=== PATIENT | female | born 1975 | race Caucasian/White ===

== ENCOUNTER → 2019-03-13 14:39 | Outpatient (CLI) | payer OTHER, SELFPAY ==
[2019-03-13 09:56] VITALS: BMI 40.7
[2019-03-13 14:57] LABS: Mucous, Urine 0 SEEN /hpf (<or=2+); Red Blood Cells-Urine 0 SEEN /hpf (0-5)
[2019-03-13 15:20] LABS: Color, Urine Yellow (Yellow); Glucose, Dipstick Normal (Normal); Ketone-Dipstick Negative (Negative); Leukocyte Esterase-Dipstick 500 /ul (Negative); Nitrite-Dipstick Negative (Negative); Occult Blood-Urine Negative /ul (Negative); Protein-Dipstick Negative (Negative); Urine Bilirubin Dipstick Negative (Negative); Urine Clarity Clear (Clear); Urine Urobilinogen Normal (Normal)
[2019-03-13 15:58] LABS: Bacteria RARE /hpf (None Seen); Squamous Epithelial Cells - UA 0-5 SEEN /hpf (5-10); White Blood Cells 0-5 SEEN /hpf (0-5)
== END ==
PROVIDERS: Family Provider Internal Medicine; PCP Internal Medicine; Referring Provider Physician Assistant Surgical; Visit Provider Physician Assistant Surgical
DX: M54.5 Low back pain (principal); R10.9 Unspecified abdominal pain; R39.15 Urgency of urination
CPT/HCPCS: 81001; 87086; 87088

== ENCOUNTER 2019-04-04 14:24 | Emergency (ER) | payer OTHER, SELFPAY ==
[2019-03-13 09:56] VITALS: BMI 40.7
[2019-04-04 14:25] VITALS: BP 112/72; PULSE 63; RESP 16; TEMP 36.7; O2SAT 97; BMI 38.0
--- NOTE | 2019-04-04 14:53 | ED.DCSUM_ITS ---
History of Present Illness <OrtezRambo - Last Filed: 04/04/19 15:39> Informant: Patient Onset: Today Narrative: Presents to the ED with exacerbation of left-sided sciatica. She has had this in the past. She has a history of herniated disc at L5-S1. This was diagnosed on MRI years ago. Since then, she does occasionally get flares at this pain. She states that this morning, she rolled over in bed and felt a twinge of pain down her left leg. She states that this morning she took ibuprofen, Norflex, and gabapentin without relief. She was seen at urgent care and prescribed a prednisone taper and took 60 mg today without relief. She states the pain is progressively gotten worse over the day. She denies any trauma. She denies any bowel/bladder incontinence. <Carmen Tatum - Last Filed: 04/04/19 16:03> Chief Complaint: Back Past Medical History <Rambo Ortez - Last Filed: 04/04/19 15:39> Smoking Status: Former smoker <Carmen Tatum - Last Filed: 04/04/19 16:03> - Allergies and Home Meds Allergies/Adverse Reactions: Allergies No Known Allergies Allergy (Verified 04/04/19 14:27) Primary Care Physician: Radha Blackman DO [Primary Care Provider] - Steve Gann MD [NON-STAFF] - Review of Systems General: Denies: Chills, Fever, Sweats Eyes: Denies: Visual changes - bilaterally, Diplopia ENT: Denies: Rhinorrhea, Sore throat Cardiovascular: Denies: Chest pain, Palpitations Respiratory: Denies: Dyspnea, Cough, Dyspnea on exertion Gastrointestinal: Denies: Abdominal pain, Nausea, Vomiting, Diarrhea, Melena, Hematochezia Genitourinary: Denies: Dysuria, Hematuria, Frequency Musculoskeletal: Reports: Back pain. Denies: Extremity Pain Skin: Denies: Rash, Wounds Neurological: Denies: Headache, Weakness, Numbness <Carmen Tatum - Last Filed: 04/04/19 16:03> Physical Exam Vital Signs/Narrative: Vital Signs Temp Pulse Resp BP Pulse Ox 04/04/19 14:25 98.1 F 63 16 112/72 97 <Rambo Ortez - Last Filed: 04/04/19 15:39> Vital Signs/Narrative: Vital Signs Temp Pulse Resp BP Pulse Ox 04/04/19 14:25 98.1 F 63 16 112/72 97 General: Well nourished, Well developed, No Acute Distress Head: Normocephalic, Atraumatic Eyes: Perrl, EOMI ENT: Moist mucous membranes, No rhinorrhea Neck: Supple, Nontender Cardiovascular: Regular rate, Regular rhythm, No murmurs Respiratory: No distress, CTA bilaterally, Chest nontender Abdomen: Soft, Nontender, Nondistended, Normal bowel sounds Back: - - There is to palpation over left sciatic notch. Pain exacerbated with left straight leg raise. No saddle paresthesias. Concerns for cauda equina or epidural abscess. 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 Patient with acute lower back pain. Some radiation to her left buttock. No bowel or bladder incontinence. No retention. No fever. No chills. No fall or trauma. No prior back surgery. She does have a history of degenerative lumbar disc disease. Has had prior spinal injections by pain management. Middle-aged female no acute distress. Vital signs are stable and afebrile. HEENT exam unremarkable. Lungs are clear. Heart regular rhythm. Abdomen soft nontender. Remedies moves all 4. Neurovascular intact. 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 Dorsi plantarflexion intact. Negative straight leg raise bilaterally. Normal range of motion, motor strength and sensation both lower extremities. No cauda equina or saddle anesthesia. Back reproducible tenderness over her lumbar and paralumbar spine and soft tissues. No redness or warmth. No signs of trauma. Treated with IM Toradol. Some relief. Then IM Dilaudid and p.o. Zofran. Acute on chronic musculoskeletal back pain with a history of degenerative disc disease. She is already on steroid prescription at home and has muscle relaxants. She will be placed on Neurontin which she is almost out of 300 mg once a day and follow-up with her primary care physician to get an MRI this week and then follow-up with a center medical specialist. <PérezRambo - Last Filed: 04/04/19 15:39> - Medical Decision Making Patient presents to the ED with exacerbation of left lumbar pain with sciatica. She does have a history of this. She appears well and nontoxic. No signs/symptoms concerning for cauda equina or epidural abscess. She was given IM Toradol, Dilaudid, and p.o. Zofran for symptomatic relief. At this time, think it is safe for the patient be discharged home. She was given neurosurgery referral. She was educated on signs/symptoms to return to the ED. She is provided discharge instructions and agreeable to plan. Impression: Acute on chronic musculoskeletal back pain with a history of degenerative disc disease. Disposition: Home stable <Carmen Tatum - Last Filed: 04/04/19 16:03> ED Disposition <Rambo Ortez - Last Filed: 04/04/19 15:39> <Carmen Tatum - Last Filed: 04/04/19 16:03> - Plan for ED Patient: Disposition: Home or Assisted Living Diagnosis: Sciatica Instructions: BACK PAIN w/ SCIATICA Prescriptions: Gabapentin [Gralise] 300 mg PO DAILY #20 tab.er.24h Prescription Printed Referrals: Radha Blackman DO [Primary Care Provider] - Steve Gann MD [NON-STAFF] -
[2019-04-04] MEDS: Ketorolac 30 MG/ML Syringe IM (15:13)
[2019-04-04] MEDS: Ondansetron 8 MG Tablet PO (15:54)
[2019-04-04] MEDS: HYDROmorphone 1 MG/ML Syringe IM (15:55)
== END 2019-04-04 16:30 | disposition home or self-care (01) ==
PROVIDERS: Emergency Provider Physician Assistant; Family Provider Internal Medicine; PCP Internal Medicine
DX: M54.42 Lumbago with sciatica, left side (principal); M51.36 Other intervertebral disc degeneration, lumbar region; G89.29 Other chronic pain; Z87.891 Personal history of nicotine dependence
CPT/HCPCS: 96372; 99282

== ENCOUNTER → 2019-04-07 14:15 | Outpatient (CLI) | payer OTHER, SELFPAY ==
[2019-04-04 14:25] VITALS: BMI 38.0
--- NOTE | 2019-04-07 14:20 | MRI_ITS ---
STUDY: MRI LUMBAR SPINE WITHOUT CONTRAST REASON FOR EXAM: Female, 43 years old. Low back pain, left leg pain. TECHNIQUE: Standardized fat and water weighted pulse sequences were obtained in the sagittal and axial planes. COMPARISON: X-ray 01/30/2017 FINDINGS: T12-L1: Normal endplates. Normal disc height, hydration and morphology. Normal bilateral facet joints. Normal central canal and bilateral lateral recesses. Normal bilateral intervertebral neural foramina. Normal lumbar lordosis. There is no substantial scoliosis. Normal conus medullaris that terminates at the L1/L2. L1-2: Normal endplates. Normal disc height, hydration and morphology. Normal bilateral facet joints. Normal central canal and bilateral lateral recesses. Normal bilateral intervertebral neural foramina. L2-3: Normal endplates. Normal disc height, hydration and morphology. Normal bilateral facet joints. Normal central canal and bilateral lateral recesses. Normal bilateral intervertebral neural foramina. L3-4: Normal endplates. Normal disc height, hydration and morphology. Normal bilateral facet joints. Normal central canal and bilateral lateral recesses. Normal bilateral intervertebral neural foramina. L4-5: Normal endplates. Normal disc height, hydration and morphology. Normal bilateral facet joints. Normal central canal and bilateral lateral recesses. Normal bilateral intervertebral neural foramina. L5-S1: Mild bilateral facet hypertrophy with fluid in the facet joints consistent with instability. 2 mm retrolisthesis of L5 on S1 with a moderate size left paracentral disc protrusion which produces moderate spinal stenosis and moderate left lateral recess stenosis with abutment of the left S1 nerve root and mild bilateral neural foraminal stenosis. Normal visualized sacral ala. Normal visualized paraspinous soft tissue structures. MRI/Spine Lumbar (Routine) IMPRESSION: Focal degenerative disc disease at L5/S1. Electronically Signed: Steve Ramsey MD at 15:33 EDT Tel , Service support ,
== END ==
PROVIDERS: Family Provider Internal Medicine; PCP Internal Medicine; Referring Provider Internal Medicine; Visit Provider Internal Medicine
DX: M51.17 Intervertebral disc disorders with radiculopathy, lumbosacral region (principal); M48.07 Spinal stenosis, lumbosacral region
CPT/HCPCS: 72148

== ENCOUNTER → 2019-05-18 14:54 | Outpatient (CLI) | payer OTHER, SELFPAY ==
[2019-03-13 09:56] VITALS: BMI 40.7
--- NOTE | 2019-05-18 14:56 | BI_ITS ---
MAMMOGRAPHY - UNILATERAL SCREENING: LEFT BREAST REASON FOR EXAM: Female, 43 years old. Routine annual screening examination (unilateral). PERTINENT HISTORY: Aunt with breast cancer. TECHNIQUE: Digital unilateral breast анна (3D mammographic acquisition) in the CC and MLO projections. 2-D mediolateral oblique (MLO) and craniocaudad (CC) views of both breasts were obtained. CAD: Full Field Digital Mammography with Computer Added Detection was performed. COMPARISON: Comparison is made with prior study dated July 03, 2017. FINDINGS: Breast Composition: There are scattered areas of fibroglandular density. There are no dominant masses or suspicious calcifications. Stable benign-appearing right axillary lymph node. No other significant abnormalities are identified. There has been no significant change since the prior study. BI/SCREEN MAMM (CAD) W/АННА UNI L IMPRESSION: Stable unilateral screening mammogram. Yearly follow-up mammogram recommended. (A) ASSESSMENT CATEGORY: BIRADS Category 2: Benign. A letter regarding these results will be sent to the patient by the facility within 30 days. Approximately 10% of breast cancers are not detected by mammography. A normal mammogram should not delay biopsy of a clinically suspicious abnormality. [id number] Electronically Signed: Derick Quijano, at 8:29 EST , Service support ,
== END ==
PROVIDERS: Family Provider Internal Medicine; PCP Internal Medicine; Referring Provider Internal Medicine; Visit Provider Internal Medicine
DX: Z12.31 Encounter for screening mammogram for malignant neoplasm of breast (principal)
CPT/HCPCS: 77063; 77067

== ENCOUNTER 2019-07-24 13:00 | Outpatient (RCR) | payer OTHER, SELFPAY ==
--- NOTE | 2019-05-12 16:44 | HP.PTEVAL_ITS ---
Patient's Visit Information RUPERTO LOBATO is a 43 year old F referred to Physical Therapy by Radha Blackman DO with a diagnosis of LBP radiculopathy. Date of Evaluation: 05/12/19 Physical Therapist: Larry Curry, DPT, OCS, CSCS - Visit Plan Frequency: 2-3x /Week Duration: 4-6 Weeks Plan: 1-3x/week for 3-4 weeks for. Monitor nerve block for adn monitor PPU ex effects on leg symptoms, Disha type progression of forces, body mechanics, quad and HS stretches, core adn LE strength to HEP. Next session, monitor procedure from pain mngmt, check PPU, progression of forces. - Subjective Findings: LBP. History of low back pain that waxes and wanes. Babyd it and used ibuprofen. Rolled over one morning adn got pain down leg suddenly. Toes numb that day working. That was 04/04/19. ER had work up and then to [facility] for MRI adn then to surgeon. MRI showed degeneration. Recommneded microdiscectomy. Sees Ned this week for nerve block tomorrow. Pain is LB, L calf and toe numbness. Was on steroids and got better but now after sliding people at work ti gets worse. 3-4 /10 leg pain and numbness. Achy LBP central. pain does not change a lot based on position. Sitting is OK but hard to do so when it first started. Had horrible pain for a week. 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 Currently is not missing any work. Sleep is not great, rolls alot and is uncomfortable. Reads for hobby and can do this. - Pain R leg adn LB Pain Intensity (Out of 10): 4 Pain Intensity Range: 0, 4 - Objective Walks stiff adn slow but I , transfers I. LB AROM ext hurts L PSIS and mod limited, flexion min limited, sB min limited adn not painful. reflexes 2/3 patella and achilles. Sensation at deficit L5 left leg to gross light touch. Strength LE 4/5 with possibly some slight weakness in toe big flexion. repeated movements NE on symptoms today. - Goals Goal 1:: Leg symptoms abolished Goal Time Frame: 4-6 Weeks Goal 2:: Patietn able to have full back AROM withotu pain and feel 90% better. Goal Time Frame: 4-6 Weeks Goal 3:: I approp HEP to minimize future problems Goal Time Frame: 4-6 Weeks Goal 4:: Patient work without increased pain and demonstrate good bdy mechanics with slidign transfer. Goal Time Frame: 4-6 Weeks - Rehabilitation Potential Physical Therapy Diagnosis: LBP radiculopathy likely discal in nature Rehabilitation Potential: Fair - Anticipated Interventions Patient/Client Instruction: Educate patient on: Condition, Plan of Care For the Purpose of:: To decrease pain, To increase ROM, To improve nutrient d elivery to tissue, To improve muscle performance and motor function, To increase tolerance to activity/condition/position, To improve ability of physical actions for home/community/work/leisure Therapeutic Exercise to Include: Strength training, Postural training, Flexibilty training, Dynamic Lumbar Stabilization, Disha Exercises For the Purpose of:: To decrease pain, To increase ROM, To improve muscle performance and motor function, To improve ability of physical actions for home/community/work/leisure, To improve gait and locomotor functions Manual Therapy Techniques to Include: Mobilization For the Purpose of:: To decrease pain, To increase ROM Thank you for the opportunity to evaluate your patient. For Medicare and Medicare HMO plans, please review the plan of care and approve it. It will need to be FAXED BACK to us at [phone] for Medicare purposes. For Medicare only, by signing this I certify the plan of care. Please let me know if there are questions or concerns regarding this plan of care. Physician Signature: Date:
--- NOTE | 2019-06-22 16:04 | HP.PTREVAL_ITS ---
Radha Blackman, DO, It has been my pleasure to treat RUPERTO LOBATO over the last 5 visits for LBP radiculopathy. Please see the progress note below for an update on the physical therapy plan of care! Subjective: Been feeling all right lately. Achiness intermittently in back but better. L lower lateral leg still numb and 1/2 toes. Better numbness since injectiona dn not effecting her walking. Non compliant with squats very. Activities are normal and focussing on body mechanics. Saw Basali and not sure numbness will go away. Will contact doctor as needed. Objective/Function: Clsoe to full rOM in low back without pain except at very end of extension slight central soreness. Plan Plan: f/u one month to ensure doing wella dn d/c, pt to call prior if worsens. Goals Goal 1:: Leg symptoms abolished Goal Time Frame: 4-6 Weeks Goal Progress: numb persists Goal 2:: Patietn able to have full back AROM withotu pain and feel 90% better. Goal Time Frame: 4-6 Weeks Goal Progress: Goal Met Goal 3:: I approp HEP to minimize future problems Goal Time Frame: 4-6 Weeks Goal Progress: Goal Met Goal 4:: Patient work without increased pain and demonstrate good bdy mechanics with slidign transfer. Goal Time Frame: 4-6 Weeks Goal Progress: Goal Met Anticipated Interventions Patient/Client Instruction: Educate patient on: Condition, Plan of Care For the Purpose of:: To decrease pain, To increase ROM, To improve nutrient delivery to tissue, To improve muscle performance and motor function, To incr ease tolerance to activity/condition/position, To improve ability of physical actions for home/community/work/leisure Therapeutic Exercise to Include: Strength training, Postural training, Flexibilty training, Dynamic Lumbar Stabilization, Alyx Exercises For the Purpose of:: To decrease pain, To increase ROM, To improve muscle performance and motor function, To improve ability of physical actions for home/community/work/leisure, To improve gait and locomotor functions Manual Therapy Techniques to Include: Mobilization For the Purpose of:: To decrease pain, To increase ROM Please do not hesitate to contact me at [phone] by phone or if you have questions or concerns regarding this new plan of care! Sincerely, Larry Curry, DPT, OCS, CSCS
--- NOTE | 2019-07-24 13:31 | HP.PTDCSUM ---
HP - PT D/C Summary It has been my pleasure to treat RUPERTO LOBATO under orders from Radha Blackman DO, for the diagnosis of LBP radiculopathy for a total of 7 visit(s). Discharge Date: 07/24/19 Please see the following information for a summary of their discharge status. - Subjective Subjective: Was good, Had a small set back as she got a new dog and had to pick her up at 56# and felt it later that night. Now has some L thigh pain and back pain but not bad. Pressups helped. Was fine prior to that. Slackery on exercises. Focussed on postrue and press ups. Trying to focus body mechanics at work. Hasn't been an issue lately. Was painfree at holidays. - Pain R leg adn LB Pain Intensity (Out of 10): 0 - Overall Improvement % Improvement: 99 - Objective Objective/Function: Full L/S AROM without pain today. Limitations in hip flexibility work against her in lifting objects off floor. Walking normal, steps normal and transferring normal. - Goals Goal 1:: Leg symptoms abolished Goal Progress: numb persists Goal 2:: Patietn able to have full back AROM withotu pain and feel 90% better. Goal Progress: Goal Met Goal 3:: I approp HEP to minimize future problems Goal Progress: Goal Met Goal 4:: Patient work without increased pain and demonstrate good bdy mechanics with slidign transfer. Goal Progress: Goal Met - Plan Plan: d/c to HEP encouraging consistency - D/C Information Discharge Comments: Pt doing well and will attempt to continue via HEP stretches and ROM and consider joining gym for general ex. Amisha olguin doctor to send her back if she cannot do this herself. Jay doctor if pain returns or in a month(pain doctor) If there are questions or concerns regarding this patient's physical therapy, please feel free to call me at [phone]. Thank you for the referral of this patient. Sincerely, Larry Curry, DPT, OCS, CSCS
== END 2019-07-24 19:00 | disposition home or self-care (01) ==
LOC: PT 13:00
PROVIDERS: Family Provider Internal Medicine; PCP Internal Medicine; Referring Provider Internal Medicine; Visit Provider Internal Medicine
DX: M54.5 Low back pain (principal); M54.16 Radiculopathy, lumbar region
CPT/HCPCS: 97110; 97162; 97164; 97530

== ENCOUNTER → 2020-06-08 | Outpatient (CLI) | payer OTHER, SELFPAY ==
[2020-06-08 17:09] LABS: Bacteria 0 SEEN /hpf (None Seen); Mucous, Urine 0 SEEN /hpf (<or=2+); Red Blood Cells-Urine 0 SEEN /hpf (0-5); White Blood Cells 0 SEEN /hpf (0-5)
[2020-06-08 17:17] LABS: Color, Urine Yellow (Yellow); Glucose, Dipstick Normal (Normal); Ketone-Dipstick 5 mg/dl (Negative); Leukocyte Esterase-Dipstick Negative /ul (Negative); Nitrite-Dipstick Negative (Negative); Occult Blood-Urine Negative /ul (Negative); Protein-Dipstick 15 mg/dl (Negative); Specific Gravity, Urine 1.025 (1.002-1.030); Urine Bilirubin Dipstick Negative (Negative); Urine Clarity Clear (Clear); Urine Urobilinogen Normal (Normal)
[2020-06-08 17:25] LABS: Squamous Epithelial Cells - UA 5-10 SEEN /hpf (5-10)
== END | disposition home or self-care (01) ==
LOC: LABSPEC 15:11
PROVIDERS: PCP Internal Medicine; Visit Provider Physician Assistant
DX: R10.9 Unspecified abdominal pain (principal); R39.15 Urgency of urination
CPT/HCPCS: 81001; 87086; 87088

== ENCOUNTER → 2020-08-10 12:23 | Outpatient (CLI) | payer OTHER, SELFPAY ==
[2020-08-10 13:19] LABS: Vitamin D,25 Hydroxy 15.8 ng/mL
== END ==
PROVIDERS: PCP Internal Medicine; Referring Provider Nurse Practitioner; Visit Provider Nurse Practitioner
DX: R21 Rash and other nonspecific skin eruption (principal)
CPT/HCPCS: 36415; 82306

== ENCOUNTER → 2021-04-14 08:03 | Outpatient (CLI) | payer OTHER, SELFPAY ==
[2021-04-14 09:50] LABS: Hemoglobin A1c 5.9 % (3.8-5.6)
== END ==
PROVIDERS: PCP Internal Medicine; Referring Provider Internal Medicine; Visit Provider Internal Medicine
DX: R73.9 Hyperglycemia, unspecified (principal)
CPT/HCPCS: 36415; 83036

== ENCOUNTER → 2021-07-06 14:26 | Outpatient (CLI) | payer OTHER, SELFPAY ==
[2021-07-06 16:32] LABS: Free T3 2.7 pg/mL (2.18-3.98); T4 Free Direct 1.44 ng/dL (0.76-1.46); Thyroid Stim Hormone (TSH) 1.68 uIU/mL (0.358-3.74)
== END ==
PROVIDERS: PCP Internal Medicine; Visit Provider Internal Medicine
DX: E01.0 Iodine-deficiency related diffuse (endemic) goiter (principal)
CPT/HCPCS: 36415; 84439; 84443; 84481

== ENCOUNTER 2021-07-11 15:01 | Outpatient (CLI) | payer OTHER, SELFPAY ==
--- NOTE | 2021-07-11 15:06 | US_ITS ---
INDICATION: THYROMEGALY EXAMINATION: Ultrasound US Thyroid (eg thyroid, parathyroid, parotid) TECHNIQUE: Castillo scale and color doppler imaging was performed of the thyroid gland. COMPARISON: None. FINDINGS: RIGHT THYROID LOBE: 1.5 x 4.5 x 1.6 cm. Homogeneous echotexture with normal vascularity. [ 6 x 3 x 5 mm mixed solid and cystic, isoechoic nodule, wider than tall with smooth margins and no echogenic foci; Ti RADS category 2, not suspicious nodule. 4 x 3 x 3 mm completely cystic, anechoic nodule, wider than tall with smooth margins and no echogenic foci; benign finding. Adjacent, 3 x 2 x 3 mm apparently solid, hypoechoic nodule, wider than tall with smooth margins and no echogenic foci; moderately suspicious nodule for which no follow-up is recommended unless greater than 1 cm in size. LEFT THYROID LOBE: 1.0 x 4.0 x 1.4 cm. Homogeneous echotexture with normal vascularity. [ 4 x 2 x 3 mm almost completely cystic, hypoechoic nodule, wider than tall with smooth margins and no echogenic foci consistent with mildly suspicious nodule. No follow-up recommended unless greater than 1.5 cm in size. ISTHMUS: 2 mm. No thyroid nodules are present. US/Thyroid IMPRESSION: No thyromegaly. Subcentimeter nodules as above, none of which meet [employer], Ti RADS recommendations for follow-up. Electronically Signed: Rayray Marie DO at 22:03 EST Tel , Service support ,
== END 2021-07-11 23:59 | disposition short-term general hospital (02) ==
LOC: US 15:04
PROVIDERS: PCP Internal Medicine; Referring Provider Internal Medicine; Visit Provider Internal Medicine
DX: E01.0 Iodine-deficiency related diffuse (endemic) goiter (principal)
CPT/HCPCS: 76536

== ENCOUNTER 2021-07-12 08:26 | Outpatient (CLI) | payer OTHER, SELFPAY ==
--- NOTE | 2021-07-12 08:27 | RAD_ITS ---
STUDY: X-RAY - ESOPHAGUS (BARIUM SWALLOW) WITH FLUOROSCOPY REASON FOR EXAM: Female, 45 years old. DYSPHAGIA TECHNIQUE: 19 view(s) of the esophagus were obtained following swallowing of barium. FLUOROSCOPY TIME (if supplied): (33 seconds) minutes/seconds COMPARISON: None. FINDINGS: There is no demonstrated esophageal foreign body. There is no demonstrated stricture or mucosal abnormality. Normal gastroesophageal junction, without a demonstrated hiatal hernia. The patient ingested a 12 mm tablet of barium without any difficulty. Normal visualized aortic arch and descending thoracic aorta. Normal visualized pulmonary parenchyma. Normal visualized osseous structures of the thorax. RAD/Esophagus Single Contrast IMPRESSION: Normal plain film x-ray examination (barium swallow) of the esophagus. Electronically Signed: Derick Quijano MD at 9:14 EST , Service support ,
== END 2021-07-12 23:59 | disposition short-term general hospital (02) ==
LOC: RAD 08:26
PROVIDERS: PCP Internal Medicine; Referring Provider Internal Medicine; Visit Provider Internal Medicine
DX: R13.10 Dysphagia, unspecified (principal)
CPT/HCPCS: 74220

== ENCOUNTER 2021-09-20 10:31 | Day surgery (SDC) | payer OTHER, SELFPAY ==
[2021-09-20] VITALS (7 sets, daily range): BP systolic 139–150; BP diastolic 69–96; PULSE 60–72; RESP 16–18; TEMP 36.2–36.5; O2SAT 96–99; BMI 39.8
--- NOTE | 2021-09-20 | GASB_PTH ---
PATIENT: RUPERTO LOBATO LOC: [facility] U#:[id number] AGE/SX: 45/F ROOM: RE09/20/[address]: Dr. Óscar Mario DO : 1975 BED: DIS: 09/20/2021 SPEC #: [id number] RECD: 09/20/21 14:34 STATUS: SAMIRA ANKIT #: [id number] FABIAN: 09/20/21 00:[address]: Óscar Mario DEPT: SURGICAL PATHOLOGY RECD BY: Ryan Mcarthur ENTERED: 09/21/21 07:51 SP TYPE: Gastric Bx OTHR DR: Dr. Radha Blackman DO Tissues: A - Gastric mucous membrane B - Duodenum, NOS C - Esophageal mucous membrane D - Stomach, NOS Procedures: Special Stain Group II Surgery Specimen Level IV Alcian Blue/PAS (control) HEADER OPERATION: EGD (MAC) biopsies, polypectomy, dilation PRE-OP DIAGNOSIS: Dysphagia TISSUE SUBMITTED: A ? Gastric body biopsy, B ? Duodenum biopsy, C ? Distal esophagus biopsy, D ? Greater curvature polyps MICROSCOPIC DIAGNOSIS A. Gastric body, biopsy: Minimal chronic inflammation. See comment. B. Duodenum, biopsy: No pathologic change. C. Distal esophagus, biopsy: Fragments of gastric mucosa with mild chronic inflammation. No evidence of goblet cell metaplasia. See comment. D. Greater gastric curvature of polyps, biopsy: Fundic gland polyps. AM:isabelle 09/22/2021 COMMENT A. The results of immunohistochemistry for Helicobacter pylori will be reported separately ([id number]). C. Alcian blue/PAS stain with matched control supports the above diagnosis. MICROSCOPIC DESCRIPTION Slides are reviewed. GROSS DESCRIPTION A - Received in fixative is one container labeled with the patient's name and designated gastric body biopsy. The specimen consists of two irregular fragments of light starr soft tissue that in aggregate measure 0.6 x 0.5 x 0.1 cm. The specimen is totally submitted in one cassette. B - Received in fixative is one container labeled with the patient's name and designated duodenum biopsy. The specimen consists of multiple irregular fragments of light starr soft tissue that in aggregate measure 1 x 0.6 x 0.1 cm. The specimen is totally submitted in one cassette. C - Received in fixative is one container labeled with the patient's name and designated distal esophagus biopsy. The specimen consists of two irregular fragments of light starr soft tissue that in aggregate measure 0.6 x 0.6 x 0.1 cm. The specimen is totally submitted in one cassette. D - Received in fixative is one container labeled with the patient's name and designated greater curvature polyp. The specimen consists of five irregular fragments of pink-starr soft tissue ranging in size from 0.6 to 1.2 cm. The specimen is totally submitted in one cassette. / AM:isabelle 09/21/2021 TC:1 CPT: 59014 x4, 10423
[2021-09-20] MEDS: Lactated Ringers 1,000 ML 15 ML IV (10:58)
--- NOTE | 2021-09-20 10:58 | PCM.HP.BLA ---
History and Physical Date of Admission: 09/20/21 45 F who presents to the office today for Referred by PCP for evaluation of dysphagia starting six months prior with increased coughing when eating and drinking. Typically, she just coughs, but once had a piece of food stop in her esophagus but was able to pass the bolus without emergent intervention. Dysphagia is not constant; for a period of time it was daily and has reduced frequency in the last couple weeks. She has also been having a throat tickle/cough. May be a lingering effect following COVID infection late 2019. Denies any medication changes or starts. Protonix 40mg QD for many years for acid reflux management and feels this has been working well. Barium swallow performed 07.12.21 finding a normal barium swallow of the esophagus. US thyroid 07.11.21 found subcentimeter nodules in both thyroid lobes. Additional medical history of prediabetes, cardiac issues, HTN, migraine, anxiety, depression, hyperlipidemia, Vitamin d deficiency, thyromegaly. ROS Const Constitutional: No anorexia, fatigue, fever(s), weight change or sleep problems Eyes Eyes: No change in vision ENT ENT: No abnormal hearing, difficulty swallowing, mouth lesions, tongue swelling or throat swelling Resp Respiratory: No cough or shortness of breath Cardio Cardiology: No chest pain at rest, chest pain with exertion, shortness of breath or dyspnea on exertion Gastro GI: No difficulty swallowing Genitourinary-Female: No difficulty urinating or burning urination Musc Musculoskeletal: No joint pain, joint swelling, muscle weakness or decreased muscle mass Skin Skin: No hair loss in leg, yellowing of the eye, itchy eyes, rash, skin ulcer or skin swelling Neuro Neurology: No abnormal hearing, abnormal movements, confusion, unsteady gait/balance or memory loss Psych Psychiatric: No anxiety, No confusion and No memory loss Endo Endocrine: No fatigue or weight change Aller/Imm Allergy/Immunologic: No itchy eyes, throat swelling or tongue swelling Alexandre/Lymp Hematologic/Lymphatic: No easy bleeding, easy bruising or enlarged lymph nodes Exam Const General: cooperative and comfortable Nutritional Appearance: average body habitus and well nourished [facility] Head: normal to inspection Ears: hearing grossly normal bilaterally Nose: external nose normal Face and sinus: normal facial exam Mouth: oral mucosae normal Throat: posterior oropharynx normal Eyes General: appearance normal, both eyes and all related structures Neck Neck: normal visual inspection Chest Chest palpation & inspection: normal inspection of the chest and normal palpation of entire chest wall Resp Effort & Inspection: normal respiratory effort Auscultation: Bilateral: Clear to Auscultation Cardio Palpation: normal PMI Rate: regular rate Rhythm: regular rhythm GI Inspection: normal to inspection Auscultation: normal bowel sounds Percussion: normal to percussion Palpation: no hepatosplenomegaly Skin General: no rashes or lesions noted Neuro General: patient alert Extrem General: normal to inspection Psych Affect: normal affect Quality Reporting Tobacco Screening ([facility] 138) Smoking Status: Former smoker Assessment and Plan Assessment and Plan (1) Dysphagia: Plan - Dr. Cantrell Friend, DO: The differential diagnosis for her esophageal dysphagia along with a cough would be cricopharyngeal achalasia, atypical reflux disease, esophageal dysmotility disorder, esophageal diverticulum, esophageal stricture, erosive esophagitis. She will undergo an EGD with Muller placement. If she does not have any signs of erosive esophagitis and her biopsies are negative for eosinophilic esophagitis then we will have to perform esophageal manometry. She was okay with this plan. For now I would not start any PPI therapy because I would like to see her results off of antiacid therapy. I have re-examined the patient. There are no clinical changes since date of exam.
--- NOTE | 2021-09-20 11:30 | IMM_PTH ---
PATIENT: RUPERTO LOBATO LOC: [facility] U#:[id number] AGE/SX: 45/F ROOM: RE09/20/[address]: Dr. Óscar Mario DO : 1975 BED: DIS: 09/20/2021 SPEC #: [id number] RECD: 09/21/21 13:14 STATUS: SAMIRA REGeraldo #: [id number] FABIAN: 09/20/21 11:[address]: Óscar Mario DEPT: IMMUNOHISTOCHEMISTRY RECD BY: Shavonne Long ENTERED: 09/21/21 13:15 SP TYPE: IMMUNO OTHR DR: Dr. Radha Blackman DO Tissues: A - Stomach, NOS Procedures: H Pylori (initial) PHYSICIAN & INSTITUTION [place] [id number] SPECIMEN INFORMATION: Tissue Source: A ? Gastric body Clinical Info: Dysphagia Specimen Number: [id number] CPT code: 28327 METHODOLOGY: Deparaffinized sections of prefer/formalin-fixed tissue or PAP/DQ stained slides are incubated with monoclonal/polyclonal antibodies/oligonucleotide probes. Localization is made via biotin free immunoperoxidase method. Appropriate controls are performed and reacted as expected. Results on target cell population are indicated in the following table: RESULTS: ANTIBODY / CLONE RESULT Block A H Pylori (polyclonal) negative These tests were developed and their performance characteristics determined by [facility]. They may not have been cleared or approved by the U.S. Food and Drug Administration. The FDA has determined that such clearance or approval is not necessary. INTERPRETATION: A. Gastric body, biopsy: Negative for Helicobacter pylori organisms. AM:isabelle 09/25/2021
--- NOTE | 2021-09-20 12:32 | OP.EGD_ITS ---
Patient Name: Mariangel Nguyen Procedure Date: 09/20/2021 11:58 AM Date of : 1975 Age: 45 Procedure: Upper GI endoscopy Indications: Epigastric abdominal pain, Functional Dyspepsia, Dysphagia, Heartburn Providers: Óscar Mario DO Medicines: See the Anesthesia note for documentation of the administered medications Patient Profile: This is a 45 year old female. Refer to note in patient chart for documentation of history and physical. Patient has symptoms of acute abdominal cramping and chronic dysphagia. She is status post EGD for biopsy five years ago. Complications: No immediate complications. Procedure: Pre-Anesthesia Assessment: - Prior to the procedure, a History and Physical was performed, and patient medications and allergies were reviewed. The patient is competent. The risks and benefits of the procedure and the sedation options and risks were discussed with the patient. All questions were answered and informed consent was obtained. Patient identification and proposed procedure were verified by the physician in the pre-procedure area. Mental Status Examination: alert and oriented. Airway Examination: normal oropharyngeal airway and neck mobility. Respiratory Examination: clear to auscultation. CV Examination: normal. Prophylactic Antibiotics: The patient does not require prophylactic antibiotics. Prior Anticoagulants: The patient has taken no previous anticoagulant or antiplatelet agents. ASA Grade Assessment: II - A patient with mild systemic disease. After reviewing the risks and benefits, the patient was deemed in satisfactory condition to undergo the procedure. The anesthesia plan was to use moderate sedation / analgesia (conscious sedation). Immediately prior to administration of medications, the patient was re-assessed for adequacy to receive sedatives. The heart rate, respiratory rate, oxygen saturations, blood pressure, adequacy of pulmonary ventilation, and response to care were monitored throughout the procedure. The physical status of the patient was re-assessed after the procedure. After obtaining informed consent, the endoscope was passed under direct vision. Throughout the procedure, the patient's blood pressure, pulse, and oxygen saturations were monitored continuously. The gastroscope was introduced through the mouth, and advanced to the second part of duodenum. The upper GI endoscopy was accomplished without difficulty. The patient tolerated the procedure well. Moderate Sedation: Moderate (conscious) sedation was administered by the endoscopy nurse and supervised by the endoscopist. The patient's oxygen saturation, heart rate, blood pressure and response to care were monitored. Total physician intraservice time was 15 minutes. Scope In: 12:04:37 PM Scope Out: 12:19:51 PM Total Procedure Duration Time 0 hours 15 minutes 14 seconds Findings: One benign-appearing, intrinsic stenosis was found 20 to 22 cm from the incisors. This stenosis was moderately severe and measured 2 mm (inner diameter) x 3 cm (in length). The stenosis was traversed. A guidewire was placed and the scope was withdrawn. Dilation was performed with a Savary dilator with no resistance at 60 Fr. The dilation site was examined following endoscope reinsertion and showed complete resolution of luminal narrowing. Estimated blood loss was minimal. LA Grade A (one or more mucosal breaks less than 5 mm, not extending between tops of 2 mucosal folds) esophagitis with no bleeding was found 37 to 40 cm from the incisors. Biopsies were taken with a cold forceps for histology. Verification of patient identification for the specimen was done. Estimated blood loss was minimal. Localized mild inflammation characterized by erosions and erythema was found in the gastric antrum. Biopsies were taken with a cold forceps for histology. Verification of patient identification for the specimen was done. Estimated blood loss was minimal. Four 5 mm sessile polyps with no bleeding and no stigmata of recent bleeding were found on the greater curvature of the stomach. The polyp was removed with a hot snare. Resection and retrieval were complete. Verification of patient identification for the specimen was done. Estimated blood loss was minimal. Localized mildly erythematous mucosa without active bleeding and with no stigmata of bleeding was found in the duodenal bulb and in the first portion of the duodenum. Biopsies were taken with a cold forceps for histology. Verification of patient identification for the specimen was done. Estimated blood loss was minimal. Impression: - Benign-appearing esophageal stenosis. Dilated. - LA Grade A reflux esophagitis. Biopsied. - Gastritis. Biopsied. - Four gastric polyps. Resected and retrieved. - Erythematous duodenopathy. Biopsied. Recommendation: - Discharge patient to home. - Resume previous diet. - Await pathology results. - Continue present medications. Procedure Code(s): --- Professional --- 43152, Esophagogastroduodenoscopy, flexible, transoral; with removal of tumor(s), polyp(s), or other lesion(s) by snare technique 88037, Esophagogastroduodenoscopy, flexible, transoral; with insertion of guide wire followed by passage of dilator(s) through esophagus over guide wire 35006, 59, Esophagogastroduodenoscopy, flexible, transoral; with biopsy, single or multiple 92151, 59, Moderate sedation services provided by the same physician or other qualified health customer care professional performing the diagnostic or therapeutic service that the sedation supports, requiring the presence of an independent trained observer to assist in the monitoring of the patient's level of consciousness and physiological status; initial 15 minutes of intraservice time, patient age 5 years or older CPT copyright 2017 [employer]. All rights reserved. The codes documented in this report are preliminary and upon personal lines insurance agent review may be revised to meet current compliance requirements. Óscar Mario DO 09/20/2021 12:31:10 PM This report has been signed electronically. Number of Addenda: 1 Note Initiated On: 09/20/2021 11:58 AM Addendum Number: 1 Addendum Date: 04/04/2022 6:27:10 AM MAC was used as sedation for this procedure. Óscar Mario DO 04/04/2022 6:27:14 AM This report has been signed electronically.
--- NOTE | 2021-09-20 12:32 | OP.CCLET_ITS ---
04/04/2022 Radha Blackman [address] [place] [address] Re : Upper GI endoscopy procedure for Mariangel Nguyen Dear Dr. Blackman This procedure was performed on Monday, September 20, 2021. My impressions and recommendations are as follows: Impressions : - Benign-appearing esophageal stenosis. Dilated. - LA Grade A reflux esophagitis. Biopsied. - Gastritis. Biopsied. - Four gastric polyps. Resected and retrieved. - Erythematous duodenopathy. Biopsied. Recommendations : - Discharge patient to home. - Resume previous diet. - Await pathology results. - Continue present medications. My findings are described in the full procedure note, which is enclosed. If I can be of further assistance, please feel free to contact me at . Sincerely, Óscar Mario, 09/20/2021 12:31:10 PM This report has been signed electronically.
== END 2021-09-20 23:59 | disposition home or self-care (01) ==
LOC: EN 10:31 → AC 10:32
PROVIDERS: PCP Internal Medicine; Referring Provider Internal Medicine; Visit Provider Internal Medicine Gastroenterology
PROC: 0DJ08ZZ Inspection of Upper Intestinal Tract, Via Natural or Artificial Opening Endoscopic (ICD-10-PCS; CPT 43235; principal; 2021-09-20 11:25)
DX: K21.00 Gastro-esophageal reflux disease with esophagitis, without bleeding (principal); K22.2 Esophageal obstruction; K30 Functional dyspepsia; K29.70 Gastritis, unspecified, without bleeding; K31.7 Polyp of stomach and duodenum; K31.89 Other diseases of stomach and duodenum; I10 Essential (primary) hypertension; M19.90 Unspecified osteoarthritis, unspecified site; F32.A Depression, unspecified; R13.10 Dysphagia, unspecified; R73.03 Prediabetes; Z79.899 Other long term (current) drug therapy; Z86.16 Personal history of COVID-19; Z87.891 Personal history of nicotine dependence
CPT/HCPCS: 43251; 43239; 43248; 88305; 88313; 88342; J7120; C1769; J2405

== ENCOUNTER 2021-10-05 08:55 | Outpatient (CLI) | payer OTHER, SELFPAY ==
[2021-10-05 09:32] LABS: Erythrocyte Sedimentation Rate 26 mm/hr (0-30)
[2021-10-05 10:46] LABS: LDH 243 U/L (84-246)
[2021-10-05 11:21] LABS: CRP 5.16 mg/L (0.0-3.0)
[2021-10-12 19:07] LABS: Cytoplasmic Ab (C-ANCA) <1:20 titer (Neg:<1:20); Endomysial Antibody IgA Negative (Negative); Immunoglobulin A 250 mg/dL (87-352); Immunoglobulin E 7 IU/mL (6-495); Immunoglobulin G 1115 mg/dL (586-1602)
[2021-10-13 13:38] LABS: Gastrin, Serum 155 pg/mL (0-115); Immunoglobulin M 195 mg/dL (26-217); Perinuclear Ab (P-ANCA) <1:20 titer (Neg:<1:20); t-Transglutaminase IgA <2 U/mL (0-3)
== END 2021-10-05 23:59 | disposition home or self-care (01) ==
LOC: LAB 08:56
PROVIDERS: PCP Internal Medicine; Referring Provider Internal Medicine Gastroenterology; Visit Provider Internal Medicine Gastroenterology
DX: K29.70 Gastritis, unspecified, without bleeding (principal)
CPT/HCPCS: 36415; 82784; 82785; 82941; 83516; 83615; 85652; 86140; 86255; 86256

== ENCOUNTER → 2021-11-02 | Outpatient (CLI) | payer OTHER, SELFPAY ==
[2021-11-02 15:52] LABS: Absolute Lymphocyte Count 2.74 X10^3/uL (0.83-4.51); Absolute Neutrophil Count 4.8 X10^3/uL (2.0-7.7); Basophil# 0.04 X10^3/uL; Basophil% 0.5 % (0-1); Eosinophil# 0.25 X10^3/uL; Hemoglobin 12.3 g/dL (12.0-15.0); Lymphocyte # 2.74 X10^3/ul (0.83-4.51); Lymphocyte % 32.5 % (19-41); Mean Corp Hgb Conc 32.4 g/dL (32-36); Mean Corpuscular Hgb 26.3 pg (27.0-32.0); Mean Corpuscular Volume 81.4 fL (81-99); Mean Platelet Vol. 9.7 fl (6.2-12.0); Monocyte# 0.58 X10^3/uL; Monocyte% 6.9 % (0-10); NRBC Flagged by Analyzer 0 % (0-5); Neutrophil # 4.79 X10^3/uL (2.7-7.7); Neutrophil % 56.6 % (47-70); Platelet Count 305 K/mm3 (150-450); RBC Distribution Width SD 38.3 fl (35.1-43.9); Red Blood Count 4.67 M/mm3 (4.2-5.4); White Blood Count 8.4 K/mm3 (4.4-11.0)
[2021-11-02 16:06] LABS: Erythrocyte Sedimentation Rate 25 mm/hr (0-30)
[2021-11-02 16:29] LABS: Hemoglobin A1c 5.9 % (3.8-5.6)
[2021-11-02 16:35] LABS: ALB/GLOB Ratio 0.9 RATIO (0.9-2.4); AST(SGOT) 29 U/L (15-37); Alanine Aminotransfer ALT/SGPT 55 U/L (13-56); Albumin, Serum 3.5 g/dL (3.2-5.0); Alkaline Phosphatase 102 U/L (45-117); Anion Gap 4 (5-15); BUN 12 mg/dL (7-18); BUN/Creat Ratio 14.9 RATIO (10-20); Calcium,Total 8.4 mg/dL (8.5-10.1); Chloride 106 mmol/L (98-107); Creatinine, Serum 0.81 mg/dL (0.55-1.02); EST Glomerular Filtration Rate 81 mL/min (>60); Est Glom Filt Rate - Afr Amer 98 mL/min (>60); Globulin 3.8 g/dL (2.2-4.2); Glucose 107 mg/dL (74-106); Potassium 3.6 mmol/L (3.5-5.1); Protein, Total 7.3 g/dL (6.4-8.2); Sodium Level 137 mmol/L (136-145); Thyroid Stim Hormone (TSH) 1.23 uIU/mL (0.358-3.74)
[2021-11-03 09:28] LABS: Hepatitis C Antibody Non-Reactive (Nonreactive); Vitamin B12 494 pg/mL (211-911)
[2021-11-06 16:03] LABS: ANTINUCLEAR ANTIBODIES DIRECT Negative (Negative)
[2021-11-08 03:08] LABS: PROEL- A/G Ratio 1.3 (0.7-1.7); PROEL- Albumin 3.9 g/dL (2.9-4.4); PROEL- Alpha-1 Globulin 0.1 g/dL (0.0-0.4); PROEL- Alpha-2 Globulin 0.9 g/dL (0.4-1.0); PROEL- Globulin, Total 3.1 g/dL (2.2-3.9)
[2021-11-08 09:55] LABS: Arsenic 7245 1 ug/L (0-9); Lead, Blood < 1 ug/dL (0-4); Mercury, Blood 85324 < 1.0 ug/L (0.0-14.9)
== END | disposition home or self-care (01) ==
LOC: LAB 13:54
PROVIDERS: PCP Internal Medicine; Visit Provider Internal Medicine
DX: R20.2 Paresthesia of skin (principal)
CPT/HCPCS: 36415; 80053; 82175; 82607; 83036; 83655; 83825; 84165; 84443; 85025; 85652; 86038; 86803

== ENCOUNTER → 2022-02-16 | Outpatient (CLI) | payer OTHER, SELFPAY ==
[2022-02-16 13:57] LABS: Vitamin B12 595 pg/mL (211-911)
[2022-02-16 14:09] LABS: Thyroid Stim Hormone (TSH) 1.24 uIU/mL (0.358-3.74)
[2022-02-19 17:07] LABS: Vitamin D 1,25-Dihydroxy 41.9 pg/mL (24.8-81.5)
[2022-02-19 22:09] LABS: Free Kappa Light Chains 19.1 mg/L (3.3-19.4); Free Lambda Light Chains 11.6 mg/L (5.7-26.3)
[2022-02-23 13:15] LABS: Vitamin B1, Thiamine 146.4 nmol/L (66.5-200.0)
== END | disposition home or self-care (01) ==
LOC: LAB 13:01
PROVIDERS: PCP Internal Medicine; Visit Provider Psychiatry & Neurology Neurology
DX: R20.3 Hyperesthesia (principal); G57.90 Unspecified mononeuropathy of unspecified lower limb; E55.9 Vitamin D deficiency, unspecified
CPT/HCPCS: 36415; 82607; 82652; 82746; 83883; 84425; 84443

== ENCOUNTER → 2022-03-26 | Outpatient (CLI) | payer OTHER, SELFPAY ==
--- NOTE | 2022-03-26 16:28 | NEURO_ITS ---
NCS and/or EMG Patient Report Ordering Doctor: Jayy Hdz DATE OF SERVICE: 03/26/22 Indication: Intermittent hypersensitivity to touch (right foot, left knee). Axial back pain without radicular features. Findings: Nerve conduction studies were performed in the right and left lower extremity. The right peroneal motor study recording the extensor digitorum brevis showed a normal amplitude, normal distal latency and normal conduction velocity. No conduction block or focal slowing was present across the fibular neck. The right tibial motor study recording the abductor hallucis brevis showed a normal amplitude, normal distal latency and normal conduction velocity. Right sural sensory response showed a normal amplitude and conduction velocity. Right superficial peroneal sensory response showed a normal amplitude and conduction velocity. The left peroneal motor study recording the extensor digitorum brevis showed a normal amplitude, normal distal latency and normal conduction velocity. No conduction block or focal slowing was present across the fibular neck. The left tibial motor study recording the abductor hallucis brevis showed a normal amplitude, normal distal latency and normal conduction velocity. Left sural sensory response showed a normal amplitude and conduction velocity. Left superficial peroneal sensory response showed a normal amplitude and conduction velocity. Needle EMG of the right lower extremity and lumbar paraspinal muscles was performed. No denervation was present in any muscle. All motor unit morphology, activation and recruitment patterns were normal. Needle EMG of the left lower extremity and lumbar paraspinal muscles was performed. No denervation was prese nt in any muscle. All motor unit morphology, activation and recruitment patterns were normal. Impression: This is a normal study. There is no electrophysiologic evidence of lumbosacral radiculopathy, plexopathy, or peripheral neuropathy of either the right or left lower extremity. Please note: the electrodiagnosis of radiculopathy is made on the basis of excluding peripheral nerve lesions on nerve conduction studies and the needle EMG demonstrating denervation and/or reinnervation in the distribution of one or more nerve roots (i.e., acute and/or chronic axonal loss). Thus, electrodiagnostic studies are insensitive in detecting radiculopathy in the absence of axonal loss (e.g., in the setting of compression resulting in intermittent ischemia or mechanical deformation; or demyelination without axonal loss). Thus, clinical correlation is required in the interpretation of this negative electrodiagnostic study for radiculopathy. Braxton Jerez D.O. Multi Select Codes Neurology Neurology Interp Codes: 21126-95 [facility] test done w/n test comp (interp) (Qty:2) and 15871-78 Nr cnd test 7-8 studies (interp)
== END | disposition home or self-care (01) ==
LOC: PSN 15:05
PROVIDERS: PCP Internal Medicine; Referring Provider Psychiatry & Neurology Neurology; Visit Provider Psychiatry & Neurology Neurology
DX: R20.3 Hyperesthesia (principal); M54.17 Radiculopathy, lumbosacral region; G62.9 Polyneuropathy, unspecified
CPT/HCPCS: 95886; 95910

== ENCOUNTER → 2022-04-16 | Outpatient (CLI) | payer OTHER, SELFPAY ==
[2022-04-16 08:17] LABS: Vitamin D,25 Hydroxy 39.4 ng/mL
[2022-04-16 08:27] LABS: Microalbumin,Random Urine 36.7 mg/L (NO RANGE EST.); Microalbumin:Creatinine Ratio 11.5 mg/g CRE (<30 mg/g CRE)
== END | disposition home or self-care (01) ==
LOC: LAB 06:59
PROVIDERS: PCP Internal Medicine; Referring Provider Internal Medicine; Visit Provider Internal Medicine
DX: I10 Essential (primary) hypertension (principal); E78.00 Pure hypercholesterolemia, unspecified; E55.9 Vitamin D deficiency, unspecified; R73.9 Hyperglycemia, unspecified
CPT/HCPCS: 36415; 82043; 82306; 82570; 83036

== ENCOUNTER → 2022-10-22 | Outpatient (CLI) | payer OTHER, SELFPAY ==
[2022-10-22 07:36] LABS: Absolute Lymphocyte Count 2.67 X10^3/uL (0.83-4.51); Absolute Neutrophil Count 4.1 X10^3/uL (2.0-7.7); Basophil# 0.05 X10^3/uL; Basophil% 0.7 % (0-1); Eosinophil# 0.44 X10^3/uL; Eosinophils% 5.7 % (0-5); Hematocrit 40.4 % (37-47); Hemoglobin 13.7 g/dL (12.0-15.0); Lymphocyte # 2.67 X10^3/ul (0.83-4.51); Lymphocyte % 34.7 % (19-41); Mean Corp Hgb Conc 33.9 g/dL (32-36); Mean Corpuscular Hgb 27.6 pg (27.0-32.0); Mean Corpuscular Volume 81.3 fL (81-99); Mean Platelet Vol. 9.6 fl (6.2-12.0); Monocyte# 0.43 X10^3/uL; Monocyte% 5.6 % (0-10); NRBC Flagged by Analyzer 0 % (0-5); Neutrophil # 4.09 X10^3/uL (2.7-7.7); Neutrophil % 53.2 % (47-70); Platelet Count 346 K/mm3 (150-450); RBC Distribution Width CV 12.8 % (11.6-14.6); RBC Distribution Width SD 37.4 fl (35.1-43.9); Red Blood Count 4.97 M/mm3 (4.2-5.4); White Blood Count 7.7 K/mm3 (4.4-11.0)
[2022-10-22 08:05] LABS: Microalbumin,Random Urine 30.8 mg/L (NO RANGE EST.); Microalbumin:Creatinine Ratio 7.6 mg/g CRE (<30 mg/g CRE)
[2022-10-22 08:07] LABS: AST(SGOT) 21 U/L (15-37); Alanine Aminotransfer ALT/SGPT 34 U/L (13-56); Albumin, Serum 3.8 g/dL (3.2-5.0); Alkaline Phosphatase 93 U/L (45-117); Anion Gap 5 (5-15); BUN 13 mg/dL (7-18); BUN/Creat Ratio 15.6 RATIO (10-20); Calcium,Total 9.2 mg/dL (8.5-10.1); Chloride 106 mmol/L (98-107); Cholesterol 183 mg/dL (200); Creatinine, Serum 0.83 mg/dL (0.55-1.02); EST Glomerular Filtration Rate 78 mL/min (>60); Est Glom Filt Rate - Afr Amer 94 mL/min (>60); Globulin 3.7 g/dL (2.2-4.2); Glucose 110 mg/dL (74-106); High Density Lipoprotein 54 mg/dL; Potassium 3.9 mmol/L (3.5-5.1); Protein, Total 7.5 g/dL (6.4-8.2); Sodium Level 138 mmol/L (136-145); Triglycerides 109 mg/dL; Very Low Density Lipoprotein 22 mg/dL (5-40)
[2022-10-22 08:32] LABS: Vitamin D,25 Hydroxy 65.2 ng/mL
[2022-10-22 09:15] LABS: Hemoglobin A1c 5.1 % (3.8-5.6)
== END | disposition home or self-care (01) ==
PROVIDERS: PCP Internal Medicine; Referring Provider Internal Medicine; Visit Provider Internal Medicine
DX: E11.9 Type 2 diabetes mellitus without complications (principal); E78.00 Pure hypercholesterolemia, unspecified; E55.9 Vitamin D deficiency, unspecified
CPT/HCPCS: 36415; 80053; 80061; 82043; 82306; 82570; 83036; 85025

== ENCOUNTER → 2023-05-14 | Outpatient (CLI) | payer OTHER, SELFPAY ==
--- NOTE | 2023-05-14 13:28 | BI_ITS ---
MAMMOGRAPHY - BILATERAL SCREENING REASON FOR EXAM: Female, 47 years old. Routine annual screening examination. PERTINENT HISTORY: Aunts with breast cancer. TECHNIQUE: Digital bilateral breast анна (3D mammographic acquisition) in the CC and MLO projections. 2-D mediolateral oblique (MLO) and craniocaudad (CC) views of both breasts were obtained. CAD: Full Field Digital Mammography with Computer Added Detection was performed. COMPARISON: Comparison is made with prior study dated May 18, 2019 and July 03, 2017. FINDINGS: Breast Composition: There are scattered areas of fibroglandular density. There are no dominant masses or suspicious calcifications. Stable benign-appearing right axillary lymph node. No other significant abnormalities are identified. There has been no significant change since the prior study. BI/SCRN MAMM (CAD)W/АННА BILAT IMPRESSION: Stable bilateral screening mammogram. Yearly follow-up mammogram recommended. (A) ASSESSMENT CATEGORY: BIRADS Category 2: Benign. A letter regarding these results will be sent to the patient by the facility within 30 days. Approximately 10% of breast cancers are not detected by mammography. A normal mammogram should not delay biopsy of a clinically suspicious abnormality. [id number] Electronically Signed: Derick Quijano MD at 14:22 EST ,
== END | disposition home or self-care (01) ==
LOC: OPBI 13:27
PROVIDERS: PCP Internal Medicine; Referring Provider Internal Medicine; Visit Provider Internal Medicine
DX: Z12.31 Encounter for screening mammogram for malignant neoplasm of breast (principal)
CPT/HCPCS: 77063; 77067

== ENCOUNTER → 2023-11-06 | Outpatient (CLI) | payer OTHER, SELFPAY ==
[2023-11-06 08:21] LABS: Absolute Lymphocyte Count 1.69 X10^3/uL (0.83-4.51); Absolute Neutrophil Count 3.4 X10^3/uL (2.0-7.7); Basophil# 0.04 X10^3/uL; Basophil% 0.7 % (0-1); Eosinophil# 0.27 X10^3/uL; Eosinophils% 4.7 % (0-5); Hematocrit 40.9 % (37-47); Hemoglobin 13.5 g/dL (12.0-15.0); Lymphocyte # 1.69 X10^3/ul (0.83-4.51); Lymphocyte % 29.4 % (19-41); Mean Corpuscular Hgb 27.4 pg (27.0-32.0); Mean Corpuscular Volume 83.1 fL (81-99); Mean Platelet Vol. 9.4 fl (6.2-12.0); Monocyte# 0.38 X10^3/uL; Monocyte% 6.6 % (0-10); NRBC Flagged by Analyzer 0 % (0-5); Neutrophil # 3.36 X10^3/uL (2.7-7.7); Neutrophil % 58.6 % (47-70); Platelet Count 300 K/mm3 (150-450); RBC Distribution Width CV 12.5 % (11.6-14.6); RBC Distribution Width SD 38.1 fl (35.1-43.9); Red Blood Count 4.92 M/mm3 (4.2-5.4); White Blood Count 5.7 K/mm3 (4.4-11.0)
[2023-11-06 09:02] LABS: ALB/GLOB Ratio 1.1 RATIO (0.9-2.4); AST(SGOT) 21 U/L (15-37); Alanine Aminotransfer ALT/SGPT 26 U/L (13-56); Albumin, Serum 3.9 g/dL (3.2-5.0); Alkaline Phosphatase 74 U/L (45-117); Anion Gap 3 (5-15); BUN 15 mg/dL (7-18); BUN/Creat Ratio 18.7 RATIO (10-20); Calcium,Total 9.1 mg/dL (8.5-10.1); Chloride 103 mmol/L (98-107); EST Glomerular Filtration Rate 81 mL/min (>60); Est Glom Filt Rate - Afr Amer 98 mL/min (>60); Globulin 3.5 g/dL (2.2-4.2); Glucose 101 mg/dL (74-106); Magnesium 2.2 mg/dL (1.6-2.6); Potassium 4.1 mmol/L (3.5-5.1); Protein, Total 7.4 g/dL (6.4-8.2); Sodium Level 135 mmol/L (136-145); Thyroid Stim Hormone (TSH) 1.69 uIU/mL (0.358-3.74)
== END | disposition home or self-care (01) ==
LOC: LAB 07:35
PROVIDERS: PCP Internal Medicine; Visit Provider Internal Medicine
DX: R00.2 Palpitations (principal)
CPT/HCPCS: 36415; 80053; 83735; 84443; 85025

== ENCOUNTER → 2023-11-27 | Outpatient (CLI) | payer OTHER, SELFPAY | END | disposition home or self-care (01) | PROVIDERS: PCP Internal Medicine; Referring Provider Internal Medicine; Visit Provider Internal Medicine | DX: R00.2 Palpitations (principal) | CPT/HCPCS: 93225; 93226 ==

== ENCOUNTER → 2024-04-22 | Outpatient (CLI) | payer OTHER, SELFPAY ==
[2024-04-28 08:38] LABS: HPV APTIMA, High Risk Negative
== END | disposition home or self-care (01) ==
LOC: LABSPEC 09:45
PROVIDERS: PCP Internal Medicine; Referring Provider Nurse Practitioner Women's Health; Visit Provider Nurse Practitioner Women's Health
DX: Z12.4 Encounter for screening for malignant neoplasm of cervix (principal)
CPT/HCPCS: 87624; 88175; G0145

== ENCOUNTER → 2024-05-15 | Outpatient (CLI) | payer OTHER, SELFPAY | END | disposition home or self-care (01) | LOC: OPBI 13:46 | PROVIDERS: PCP Internal Medicine; Referring Provider Nurse Practitioner Women's Health; Visit Provider Nurse Practitioner Women's Health | DX: Z12.31 Encounter for screening mammogram for malignant neoplasm of breast (principal) | CPT/HCPCS: 77063; 77067 ==

== ENCOUNTER 2024-09-04 10:59 | Day surgery (SDC) | payer OTHER, SELFPAY ==
--- NOTE | 2024-09-02 18:40 | PAT.ANE_ITS ---
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 When Was Last Pacemaker Check QUESTION #4 FULL TEXT: You/Your Family Experience fever (hyperthermia) with Anesthesia Last Oral Intake Last Oral intake: Last Oral Intake NPO since Meds taken in AM with sips of water? Meds patient instructed to take am of surgery PONV PONV - retail parts professional: PONV - retail parts professional Female Yes 09/02/24 09:01 HX of Motion Sickness Yes 09/02/24 09:01 HX of N/V After Surgery No 09/02/24 09:01 Non-Smoker Yes 09/02/24 09:01 Duration of Surgery greater No 09/02/24 09:01 than 60 minutes Number of Risk Factors 3 09/02/24 09:01 PONV Score Moderate Risk 09/02/24 09:01 Height & Weight Height & Weight: Anesthesia: Height & Weight Height 5 ft 6 in 08/19/24 07:59 Respiratory Assessment Respiratory Assessment - retail parts professional: Respiratory Tract Infection Hx - retail parts professional Hx Respiratory Tract Infection Yes: BEGINING OF JUL, 09/02/24 09:01 CLEARED UP STOP Sleep Apnea STOP Sleep Apnea - retail parts professional: STOP Sleep Apnea - retail parts professional Hx Hypertension Yes: CONTROLLED WITH MED 09/02/24 09:01 Hx Sleep Apnea No 09/02/24 09:01 CPAP BIPAP Do you snore loudly (louder No 09/02/24 09:01 than talking or can be heard Do you often feel tired/ No 09/02/24 09:01 fatigued/ sleepy during daytime? Has anyone observed you stop No 09/02/24 09:01 breathing during sleep? STOP Results Negative 09/02/24 09:01 QUESTION #5 FULL TEXT : Do you snore loudly (louder than talking or can be heard through closed doors)? 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 Specify any problems Hx of Preganancy in last 3 No 09/02/24 09:01 Months Nurse Filling Out Transfusion NBUCHER 09/02/24 09:01 & Questions: Date: 09/02/24 09/02/24 09:01 Time: 09:03 09/02/24 09:01 Patient unable to answer at this time (ie. confused, unrespo /Reproduction History /Reproductive History - retail parts professional: /Reproductive Hx- retail parts professional Hx Now No 09/02/24 09:01 Gestational Age (in weeks): EDC: Hx Hx Para Hx Section SAB No 09/02/24 09:01 [facility] Medical History Wears glasses High cholesterol Leg cramps History of echocardiogram History of Holter monitoring History of steroid therapy Infertility COVID-19 High triglycerides Bone fracture Seasonal allergies Thyromegaly Migraine with aura, not intractable, without status migrainosus Facet arthritis of lumbar region Displacement of lumbar intervertebral disc without myelopathy Cervical radiculopathy Sciatica, left side Paresthesia Weakness of left lower extremity Hyperglycemia Post-menopausal Depression Anxiety Alcohol use Arthritis Restless legs Migraine headache Difficulty swallowing Gastric reflux Former smoker Shortness of breath on exertion History of stress test History of irregular heartbeat Back pain Diabetes Shoulder pain Hemorrhoids Arthritis HTN (hypertension) Home Medications ?Medication ?Instructions ?Recorded ?Last Taken ?Type citalopram 10 mg tablet (Celexa) 20 mg PO DAILY Unknown History propranolol 120 mg capsule,24 120 mg PO DAILY 04/04/19 09/20/21 History hr,extended release cetirizine 10 mg capsule (Zyrtec) 10 mg PO DAILY 09/18 Unknown History pantoprazole 40 mg tablet,delayed 40 mg PO QAM #90 tab s 08/13/22 Unknown Rx release rosuvastatin 20 mg tablet (Crestor) 20 mg PO QDAY 04/07 12/29 Unknown History estradiol 0.05 mg-norethindrone 1 patch transdermal 2X W #24 ea 05/18/24 Unknown Rx 0.25 mg/24 hr semiwkly transderm patch (CombiPatch) multivitamin 1 tab PO QDAY 08/19/24 Unkno wn History Bacillus coagulans-inulin 1 1 cap PO DAILY 09/02/24 Un known History billion cell-250 mg capsule (Probiotic with Prebiotic) tirzepatide 5 mg/0.5 mL 5 mg subcut TH Diabetes 08/09 12/30 Unknown History subcutaneous pen injector (Mounjaro) Allergy/AdvReac Type Severity Reaction Status Date / Time No Known Allergies Allergy Verified 09/02/24 08:58 Family History (Updated 08/19/24 @ 07:45 by Teresa Lopez) Aunt Breast cancer Maternal Father CAD (coronary artery disease) Myocardial infarction Asthma Depression Heart disease High cholesterol Mother Hypertension Arthritis High cholesterol Grandmother Cancer Stomach- Maternal Uncle Cancer Glioblastoma- Paternal Sister Colon polyps Surgical History History of esophagogastroduodenoscopy (EGD) Hx laparoscopic cholecystectomy History of tonsillectomy Social History household members: spouse current occupational status: employed current occupation: [employer] Smoking Status: Former smoker second hand exposure: No alcohol intake: current alcohol intake frequency: holidays/special occasions only Alcohol type: beer details: occasionally - rarely substance use type: does not use caffeine: Yes Type: coffee Number of servings: 2 what type of physical activity do you participate in: none solitario/samaritan: Mandaeism seatbelt use: always additional social history: - Delfino Audit: Pertinent Findings Pertinent Findings Stress test pertinent findings: Stress test from April 2017 demonstrates normal LV systolic function with no evidence of stenotic valves and negative for ischemia. Normal stress echo at moderate workload. Additional pertinent findings: Holter monitor summary from November 2023 demonstrates premature supraventricular ectopic isolated beats with no runs noted and no atrial fibrillation noted. Recommendation Anesthesia Recommendation Anesthesia recommendation: OPTIMIZED for anesthesia
[2024-09-04] VITALS (9 sets, daily range): BP systolic 98–130; BP diastolic 63–78; PULSE 56–68; RESP 16; TEMP 36.3–37.1; O2SAT 98–100; BMI 33.5
--- NOTE | 2024-09-04 11:37 | HP.PCM_ITS ---
HPI - General General Date of Admission: 09/04/24 Date of Service: 09/04/24 Chief Complaint: screening colon HPI Narrative RUPERTO LOBATO, is a 48 F who presents today for screening colonoscopy. She has not had a colonoscopy in the past. She has no abdominal pain cramping, chest pain or shortness of breath. FOR[facility]LY [facility] Medical History Wears glasses High cholesterol Leg cramps History of echocardiogram History of Holter monitoring History of steroid therapy Infertility COVID-19 High triglycerides Bone fracture Seasonal allergies Thyromegaly Migraine with aura, not intractable, without status migrainosus Facet arthritis of lumbar region Displacement of lumbar intervertebral disc without myelopathy Cervical radiculopathy Sciatica, left side Paresthesia Weakness of left lower extremity Hyperglycemia Post-menopausal Depression Anxiety Alcohol use Arthritis Restless legs Migraine headache Difficulty swallowing Gastric reflux Former smoker Shortness of breath on exertion History of stress test History of irregular heartbeat Back pain Diabetes Shoulder pain Hemorrhoids Arthritis HTN (hypertension) Home Medications ?Medication ?Instructions ?Recorded ?Last Taken ?Type citalopram 10 mg tablet (Celexa) 20 mg PO DAILY 09/04/24 History propranolol 120 mg capsule,24 120 mg PO DAILY 04/04/19 09/04/24 History hr,extended release cetirizine 10 mg capsule (Zyrtec) 10 mg PO DAILY 09/18 Unknown History pantoprazole 40 mg tablet,delayed 40 mg PO QAM #90 tab s 08/13/22 09/04/24 Rx release rosuvastatin 20 mg tablet (Crestor) 20 mg PO QDAY 04/07 12/29 Unknown History estradiol 0.05 mg-norethindrone 1 patch transdermal 2X W #24 ea 05/18/24 Unknown Rx 0.25 mg/24 hr semiwkly transderm patch (CombiPatch) multivitamin 1 tab PO QDAY 08/19/24 Unkno wn History Bacillus coagulans-inulin 1 1 cap PO DAILY 09/02/24 Un known History billion cell-250 mg capsule (Probiotic with Prebiotic) tirzepatide 5 mg/0.5 mL 5 mg subcut TH Diabetes 08/0908/07/24 History subcutaneous pen injector (Mounjaro) Allergy/AdvReac Type Severity Reaction Status Date / Time No Known Allergies Allergy Verified 09/04/24 11:18 Family History Aunt Breast cancer Maternal Father CAD (coronary artery disease) Myocardial infarction Asthma Depression Heart disease High cholesterol Mother Hypertension Arthritis High cholesterol Grandmother Cancer Stomach- Maternal Uncle Cancer Glioblastoma- Paternal Sister Colon polyps Surgical History History of esophagogastroduodenoscopy (EGD) Hx laparoscopic cholecystectomy History of tonsillectomy Social History household members: spouse current occupational status: employed current occupation: [employer] Smoking Status: Former smoker second hand exposure: No alcohol intake: current alcohol intake frequency: holidays/special occasions only Alcohol type: beer details: occasionally - rarely substance use type: does not use caffeine: Yes Type: coffee Number of servings: 2 what type of physical activity do you participate in: none solitario/christian: Hinduism seatbelt use: always additional social history: - Delfino ABREU Constitutional Constitutional: Denies fatigue, fever(s), poor appetite, weight gain or weight loss Gastrointestinal Gastrointestinal: Denies belching, bloating, change in bowel habits, change in stool character, chewing difficulty, coffee ground emesis, constipation, cramping, diarrhea, dyspepsia, dysphagia, early satiety, excessive flatus, fecal incontinence, heartburn, hematemesis, hematochezia, hemorrhoids, loose stools, melena, nausea, odynophagia, rectal bleeding, tenesmus, vomiting or weight changes Physical Exam Const alert, oriented x3, no apparent distress and healthy appearing General Appearance: cooperative GI normal to inspection, nondistended, normoactive bowel sounds, soft to palpation, non-tender and non-distended Percussion: normal to percussion Rectal Exam: deferred Assessment & Plan Assessment/Plan (1) Encounter for screening for malignant neoplasm of colon: PLAN: She was explained alternatives, risk and benefits include not withstanding bleeding, infection, sepsis, perforation, need for charge and . She will have an ASA of 3.
--- NOTE | 2024-09-04 12:00 | COLBX_PTH ---
PATIENT: RUPERTO LOBATO LOC: EN U#:[id number] AGE/SX: 48/F ROOM: RE09/04/[address]: Dr. Óscar Mario DO : 1975 BED: DIS: 09/04/2024 SPEC #: [id number] RECD: 09/04/24 15:25 STATUS: SAMIRA GREENGeraldo #: [id number] FABIAN: 09/04/24 12:[address]: Óscar Mario DEPT: SURGICAL PATHOLOGY RECD BY: Kiesha Gr ENTERED: 09/07/24 08:39 SP TYPE: COLON BX OTHR DR: Dr. Radha Blackman DO Tissues: Sigmoid colon biopsy Procedures: Surgery Specimen Level IV HEADER OPERATION: Colonoscopy with biopsy PRE-OP DIAGNOSIS: Encounter for screening for malignant neoplasm of colon TISSUE SUBMITTED: Sigmoid polyp biopsy MICROSCOPIC DIAGNOSIS Colon, sigmoid, polyp, biopsy: * Tubular adenoma. MICROSCOPIC DESCRIPTION Slides are reviewed. GROSS DESCRIPTION Received in fixative is one container labeled with the patient's name and designated Sigmoid polyp biopsy. The specimen consists of one irregular fragment of light starr soft tissue that measures 0.5 x 0.3 x 0.2 cm. The specimen is totally submitted in one cassette. 09/07/2024 TC: CPT:08929
--- NOTE | 2024-09-04 12:06 | PCM.PRE.AN2 ---
ASA Classification* ASA Classification ASA Classification: 2 Assessment & Plan Anesthesia* Anesthesia Assessment Anesthesia Assessment: Discussed sedation and/or anesthesia options, risks, benefits, and alternatives with patient/parents/legal guardian/POA. Questions invited. The patient/parents/legal guardian/POA seems to understand and agrees to proceed with anesthesia plan. Reviewed the physical assessment, medical history, allergy history and patient home medications list prior to surgery/procedure/anesthetic and documented any changes. Performed airway and anesthesia risk assessments. Anesthesia Type Anesthesia Type: MAC History Source History Obtained from:: Patient and Chart Anesthesia Focused Assessment* Temperature: 98.4 F Pulse Rate: 62 Blood Pressure: 126/64 Respiratory Rate: 16 Pulse Ox: 98 Oxygen Delivery Method: Room Air Airway Assessment Mouth opens: >3 cm Mallampati Score: IV Teeth Condition: Intact Neck Range of motion (ROM): Full ROM Focused Labs Anesthesia Preop lab: CBC WBC 5.7 K/mm3 (4.4-11.0) 11/06/23 07:36 11/06/23 RBC 4.92 M/mm3 (4.2-5.4) 11/06/23 07:36 11/06/23 Hgb 13.5 g/dL (12.0-15.0) 11/06/23 07:36 11/06/23 Hct 40.9 % (37-47) 11/06/23 07:36 11/06/23 Plt Count 300 K/mm3 (150-450) 11/06/23 07:36 11/06/23 CHEMISTRY Potassium 4.1 mmol/L (3.5-5.1) 11/06/23 07:36 11/06/23 Sodium 135 mmol/L (136-145) L 11/06/23 07:36 11/06/23 Magnesium 2.2 mg/dL (1.6-2.6) 11/06/23 07:36 11/06/23 Phosphorus 4.2 mg/dL (2.5-4.9) 04/30/23 07:21 04/30/23 BUN 15 mg/dL (7-18) 11/06/23 07:36 11/06/23 Creatinine 0.80 mg/dL (0.55-1.02) 11/06/23 07:36 05/01/24 Glucose 101 mg/dL (74-106) 11/06/23 07:36 11/06/23 POC Glucose 113 mg/dL (70-110) H 09/09/14 08:12 09/09/14 TSH 1.69 uIU/mL (0.358-3.74) 11/06/23 07:36 11/06/23 COAG HCG, Quant < 1 mIU/mL (<9 non-preg) 05/21/17 13:43 05/21/17 Tst Clinic Negative 06/08/20 13:18 06/08/20 Pre-Assessment Diagnosis/Proposed Procedure Planned Operative Procedure(s): CSCOPE Anesthesia History 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 When Was Last Pacemaker Check QUESTION #4 FULL TEXT: You/Your Family Experience fever (hyperthermia) with Anesthesia Last Oral Intake Last Oral intake: Last Oral Intake NPO since 07:00 09/04/24 11:27 Meds taken in AM with sips of water? 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 Female Yes 09/02/24 09:01 HX of Motion Sickness Yes 09/02/24 09:01 HX of N/V After Surgery No 09/02/24 09:01 Non-Smoker Yes 09/02/24 09:01 Duration of Surgery greater No 09/02/24 09:01 than 60 minutes Number of Risk Factors 3 09/02/24 09:01 PONV Score Moderate Risk 09/02/24 09:01 Height & Weight Height & Weight: Anesthesia: Height & Weight Height 5 ft 6 in 09/04/24 11:27 Weight: 94.1 kg 09/04/24 11:27 Body Mass Index (BMI) 33.5 09/04/24 11:27 Respiratory Assessment Respiratory Assessment - water systems designer: Respiratory Tract Infection Hx - water systems designer Hx Respiratory Tract Infection Yes: BEGINING OF Jul,09/02/24 09:01 CLEARED UP STOP Sleep Apnea STOP Sleep Apnea - water systems designer: STOP Sleep Apnea - water systems designer Hx Hypertension Yes: CONTROLLED WITH MED 09/02/24 09:01 Hx Sleep Apnea No 09/02/24 09:01 CPAP BIPAP Do you snore loudly (louder No 09/02/24 09:01 than talking or can be heard Do you often feel tired/ No 09/02/24 09:01 fatigued/ sleepy during daytime? Has anyone observed you stop No 09/02/24 09:01 breathing during sleep? STOP Results Negative 09/02/24 09:01 QUESTION #5 FULL TEXT : Do you snore loudly (louder than talking or can be heard through closed doors)? 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 Specify any problems Hx of Preganancy in last 3 No 09/02/24 09:01 Months Nurse Filling Out Transfusion NBUCHER 09/02/24 09:01 & Questions: Date: 09/02/24 09/02/24 09:01 Time: 09:03 09/02/24 09:01 Patient unable to answer at this time (ie. confused, unrespo /Reproduction History /Reproductive History - water systems designer: /Reproductive Hx- water systems designer Hx Now No 09/02/24 09:01 Gestational Age (in weeks): EDC: Hx Hx Para Hx Section SAB No 09/02/24 09:01 [facility] Medical History Wears glasses High cholesterol Leg cramps History of echocardiogram History of Holter monitoring History of steroid therapy Infertility COVID-19 High triglycerides Bone fracture Seasonal allergies Thyromegaly Migraine with aura, not intractable, without status migrainosus Facet arthritis of lumbar region Displacement of lumbar intervertebral disc without myelopathy Cervical radiculopathy Sciatica, left side Paresthesia Weakness of left lower extremity Hyperglycemia Post-menopausal Depression Anxiety Alcohol use Arthritis Restless legs Migraine headache Difficulty swallowing Gastric reflux Former smoker Shortness of breath on exertion History of stress test History of irregular heartbeat Back pain Diabetes Shoulder pain Hemorrhoids Arthritis HTN (hypertension) Home Medications ?Medication ?Instructions ?Recorded ?Last Taken ?Type citalopram 10 mg tablet (Celexa) 20 mg PO DAILY 03/13/19 09/04/24 History propranolol 120 mg capsule,24 120 mg PO DAILY 04/04/19 09/04/24 History hr,extended release cetirizine 10 mg capsule (Zyrtec) 10 mg PO DAILY 09/18/21 Unknown History pantoprazole 40 mg tablet,delayed 40 mg PO QAM #90 tabs 08/13/22 09/04/24 Rx release rosuvastatin 20 mg tablet (Crestor) 20 mg PO QDAY 04/22/24 Unknown History estradiol 0.05 mg-norethindrone 1 patch transdermal 2XW #24 ea 05/18/24 Unknown Rx 0.25 mg/24 hr semiwkly transderm patch (CombiPatch) multivitamin 1 tab PO QDAY 08/19/24 Unknown History Bacillus coagulans-inulin 1 1 cap PO DAILY 09/02/24 Unknown History billion cell-250 mg capsule (Probiotic with Prebiotic) tirzepatide 5 mg/0.5 mL 5 mg subcut TH Diabetes 09/02/24 08/07/24 History subcutaneous pen injector (Mounjaro) Allergy/AdvReac Type Severity Reaction Status Date / Time No Known Allergies Allergy Verified 09/04/24 11:18 Family History Aunt Breast cancer Maternal Father CAD (coronary artery disease) Myocardial infarction Asthma Depression Heart disease High cholesterol Mother Hypertension Arthritis High cholesterol Grandmother Cancer Stomach- Maternal Uncle Cancer Glioblastoma- Paternal Sister Colon polyps Surgical History History of esophagogastroduodenoscopy (EGD) Hx laparoscopic cholecystectomy History of tonsillectomy Social History household members: spouse current occupational status: employed current occupation: [employer] Smoking Status: Former smoker second hand exposure: No alcohol intake: current alcohol intake frequency: holidays/special occasions only Alcohol type: beer details: occasionally - rarely substance use type: does not use caffeine: Yes Type: coffee Number of servings: 2 what type of physical activity do you participate in: none 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
[2024-09-04 12:12] LABS: Bedside Glucose 85 mg/dL (74-106)
--- NOTE | 2024-09-04 13:08 | OP.COLON_ITS ---
Patient Name: Mariangel Nguyen Procedure Date: 09/04/2024 12:36 PM Date of : 1975 Age: 48 Procedure: Colonoscopy Indications: Screening for colorectal malignant neoplasm Providers: Óscar Mario DO Referring MD: Radha Blackman Medicines: Monitored Anesthesia Care Patient Profile: This is a 48 year old female. Refer to note in patient chart for documentation of history and physical. Last Colonoscopy: none. The patient's first colonoscopy is today. Complications: No immediate complications. Procedure: Pre-Anesthesia Assessment: - Prior to the procedure, a History and Physical was performed, and patient medications and allergies were reviewed. The patient is competent. The risks and benefits of the procedure and the sedation options and risks were discussed with the patient. All questions were answered and informed consent was obtained. Patient identification and proposed procedure were verified by the physician in the pre-procedure area. Mental Status Examination: alert and oriented. Airway Examination: normal oropharyngeal airway and neck mobility. Respiratory Examination: clear to auscultation. CV Examination: normal. Prophylactic Antibiotics: The patient does not require prophylactic antibiotics. Prior Anticoagulants: The patient has taken no anticoagulant or antiplatelet agents except for NSAID medication. ASA Grade Assessment: II - A patient with mild systemic disease. After reviewing the risks and benefits, the patient was deemed in satisfactory condition to undergo the procedure. The anesthesia plan was to use monitored anesthesia care (MAC). Immediately prior to administration of medications, the patient was re-assessed for adequacy to receive sedatives. The heart rate, respiratory rate, oxygen saturations, blood pressure, adequacy of pulmonary ventilation, and response to care were monitored throughout the procedure. The physical status of the patient was re-assessed after the procedure. After I obtained informed consent, the scope was passed under direct vision. Throughout the procedure, the patient's blood pressure, pulse, and oxygen saturations were monitored continuously. The Colonoscope was introduced through the anus and advanced to the cecum, identified by appendiceal orifice and ileocecal valve. The colonoscopy was performed without difficulty. The patient tolerated the procedure well. The quality of the bowel preparation was adequate. The ileocecal valve, appendiceal orifice, and rectum were photographed. Scope In: 12:47:32 PM Scope Withdrawal Time 0 hours 9 minutes 2 seconds Scope Out: 1:00:53 PM Total Procedure Duration Time 0 hours 13 minutes 21 seconds Findings: The perianal and digital rectal examinations were normal. A 7 mm polyp was found in the sigmoid colon. The polyp was sessile. The polyp was removed with a cold biopsy forceps. Resection and retrieval were complete. No biopsies or other specimens were collected for this exam. The exam was otherwise without abnormality on direct and retroflexion views. Impression: - One 7 mm polyp in the sigmoid colon, removed with a cold biopsy forceps. Resected and retrieved. No specimens collected. - The examination was otherwise normal on direct and retroflexion views. Recommendation: - Discharge patient to home. - Resume previous diet. - Continue present medications. - Await pathology results. - Repeat colonoscopy in 5 years for surveillance. Procedure Code(s): --- Professional --- 74684, Colonoscopy, flexible; with biopsy, single or multiple CPT copyright 2021 [employer]. All rights reserved. The codes documented in this report are preliminary and upon body shop worker review may be revised to meet current compliance requirements. Óscar Mario DO 09/04/2024 1:07:36 PM This report has been signed electronically. Number of Addenda: 0 Note Initiated On: 09/04/2024 12:36 PM
--- NOTE | 2024-09-04 13:08 | OP.CCLET_ITS ---
09/04/2024 Radha Blackman [address] [place] [address] Re : Colonoscopy procedure for Mariangel Nguyen Dear Dr. Blackman This procedure was performed on Wednesday, September 04, 2024. My impressions and recommendations are as follows: Impressions : - One 7 mm polyp in the sigmoid colon, removed with a cold biopsy forceps. Resected and retrieved. No specimens collected. - The examination was otherwise normal on direct and retroflexion views. Recommendations : - Discharge patient to home. - Resume previous diet. - Continue present medications. - Await pathology results. - Repeat colonoscopy in 5 years for surveillance. My findings are described in the full procedure note, which is enclosed. If I can be of further assistance, please feel free to contact me at . Sincerely, Óscar Mario, 09/04/2024 1:07:36 PM This report has been signed electronically.
--- NOTE | 2024-09-04 13:09 | PCM.POST.ANE ---
Anesthesia: Postop Eval I Current Vital Signs Temperature: 98.7 F Pulse Rate: 68 Blood Pressure: 108/68 Respiratory Rate: 16 Pulse Ox: 99 Oxygen Delivery Method: Room Air Assessment Airway patent: Yes Spontaneous unlabored respirations: Yes Mental status: Awake and Calm nausea: No Vomiting: No Anesthesia Complication: No Fluid Hydration Crystalloid volume administer (ml): 55 Total IV fluid infused: 55 Progress Note Anesthesia document: Postop Eval 1 completed: Yes
--- NOTE | 2024-09-04 16:16 | PCM.POSTANE2 ---
Anesthesia Postop Eval I Sum Postop Eval Completion status Anesthesia document: Postop Eval 1 completed: Yes Anesthesia Postop Eval I Summary Anesthesia Postop Eval I Summary: Anesthesia Postop Eval I: Assessment Summary Airway patent Yes 09/04/24 13:09 [email or web address] Spontaneous unlabored Yes 09/04/24 13:09 [email or web address] respirations Mental status Awake,Calm 09/04/24 13:09 [email or web address] nausea No 09/04/24 13:09 [email or web address] Vomiting No 09/04/24 13:09 [email or web address] Anesthesia Postop Eval I: Fluid Summary Crystalloid volume administer 55 09/04/24 13:09 [email or web address] (ml) Colloids volume administered ( ml) Blood Product volume administered (ml) Total IV fluid infused 55 09/04/24 13:09 [email or web address] Anesthesia Postop Eval I: Summary Notes Anesthesia Complication No 09/04/24 13:09 [email or web address] Anesthesia Complication Comment: Post-operative progress note Anesthesia: Postop Eval II Evaluation Mental status: Awake and Calm Pain Level: 0 nausea: No Vomiting: No Complications Anesthesia Complication: No
== END 2024-09-04 14:29 | disposition home or self-care (01) ==
LOC: EN 10:59 → AC 11:01
PROVIDERS: PCP Internal Medicine; Referring Provider Internal Medicine; Visit Provider Internal Medicine Gastroenterology
PROC: 0DJD8ZZ Inspection of Lower Intestinal Tract, Via Natural or Artificial Opening Endoscopic (ICD-10-PCS; CPT 45378; principal; 2024-09-04 11:55)
DX: Z12.11 Encounter for screening for malignant neoplasm of colon (principal); E11.9 Type 2 diabetes mellitus without complications; D12.5 Benign neoplasm of sigmoid colon; I10 Essential (primary) hypertension; E78.00 Pure hypercholesterolemia, unspecified; Z79.899 Other long term (current) drug therapy; Z86.16 Personal history of COVID-19; Z87.891 Personal history of nicotine dependence
CPT/HCPCS: 45380; 82962; 88305; A4216; J2405

== ENCOUNTER 2024-09-08 10:07 | Emergency (ER) | payer OTHER, SELFPAY ==
[2024-09-08 10:07] VITALS: BP 128/67; PULSE 93; RESP 16; TEMP 36.4; O2SAT 100; BMI 32.5
--- NOTE | 2024-09-08 11:21 | EX.ED.DYSGE1 ---
HPI History of Present Illness Chief Complaint: Nausea/Vomiting/Diarrhea Informant: patient Narrative Narrative: 48-year-old female presenting to the emergency room with vomiting and diarrhea. Patient states that on Saturday she felt ill with vomiting and diarrhea. 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 Prior to becoming ill she underwent a colonoscopy on Saturday and feels that she is continuing to be dehydrated. She states she feels lightheaded/dizzy. She denies any rash blood in stool or vomit. Last episode of emesis was on Saturday last episode of diarrhea was last night. No reported fever. No reported rash. [facility] Medical History Wears glasses High cholesterol Leg cramps History of echocardiogram History of Holter monitoring History of steroid therapy Infertility COVID-19 High triglycerides Bone fracture Seasonal allergies Thyromegaly Migraine with aura, not intractable, without status migrainosus Facet arthritis of lumbar region Displacement of lumbar intervertebral disc without myelopathy Cervical radiculopathy Sciatica, left side Paresthesia Weakness of left lower extremity Hyperglycemia Post-menopausal Depression Anxiety Alcohol use Arthritis Restless legs Migraine headache Difficulty swallowing Gastric reflux Former smoker Shortness of breath on exertion History of stress test History of irregular heartbeat Back pain Diabetes Shoulder pain Hemorrhoids Arthritis HTN (hypertension) Home Medications ?Medication ?Instructions ?Recorded ?Last Taken ?Type citalopram 10 mg tablet (Celexa) 20 mg PO DAILY 03/13/19 09/04/24 History propranolol 120 mg capsule,24 120 mg PO DAILY 04/04/19 09/04/24 History hr,extended release cetirizine 10 mg capsule (Zyrtec) 10 mg PO DAILY 09/18/21 Unknown History pantoprazole 40 mg tablet,delayed 40 mg PO QAM #90 tabs 08/13/22 09/04/24 Rx release rosuvastatin 20 mg tablet (Crestor) 20 mg PO QDAY 04/22/24 Unknown History estradiol 0.05 mg-norethindrone 1 patch transdermal 2XW #24 ea 05/18/24 Unknown Rx 0.25 mg/24 hr semiwkly transderm patch (CombiPatch) multivitamin 1 tab PO QDAY 08/19/24 Unknown History Bacillus coagulans-inulin 1 1 cap PO DAILY 09/02/24 Unknown History billion cell-250 mg capsule (Probiotic with Prebiotic) tirzepatide 5 mg/0.5 mL 5 mg subcut TH Diabetes 09/02/24 08/07/24 History subcutaneous pen injector (Enriqueundiego) ondansetron 4 mg disintegrating 4 mg PO Q6H PRN PRN Nausea #15 tabs 09/08/24 Unknown Rx tablet potassium chloride 20 mEq 40 meq (2 x 20 mEq) PO DAILY #6 09/08/24 Unknown Rx tablet,extended release tabs Allergy/AdvReac Type Severity Reaction Status Date / Time No Known Allergies Allergy Verified 09/08/24 10:09 Family History Aunt Breast cancer Maternal Father CAD (coronary artery disease) Myocardial infarction Asthma Depression Heart disease High cholesterol Mother Hypertension Arthritis High cholesterol Grandmother Cancer Stomach- Maternal Uncle Cancer Glioblastoma- Paternal Sister Colon polyps Surgical History Hx of colonoscopy History of esophagogastroduodenoscopy (EGD) Hx laparoscopic cholecystectomy History of tonsillectomy Social History household members: spouse current occupational status: employed current occupation: [employer] Smoking Status: Former smoker second hand exposure: No alcohol intake: current alcohol intake frequency: holidays/special occasions only Alcohol type: beer details: occasionally - rarely substance use type: does not use caffeine: Yes Type: coffee Number of servings: 2 what type of physical activity do you participate in: none solitario/congregational: Sabianist seatbelt use: always additional social history: - Delfino ROS ROS ED ROS Narrative Lightheadedness/dizzy Constitutional Constitutional ED: Denies chills or weight loss Eyes Eyes: Denies change in vision or diplopia ENT ENT ED: Denies ear pain, rhinorrhea or sore throat Cardiovascular Cardiovascular: Denies chest pain, orthopnea, palpitations or racing heartbeat Respiratory/Chest Respiratory/Chest: Denies cough, dyspnea or orthopnea Gastrointestinal Gastrointestinal: Reports diarrhea, nausea and vomiting; Denies abdominal pain Genitourinary Genitourinary ED: Denies dysuria, hematuria or urinary frequency Musculoskeletal Musculoskeletal: Reports myalgias; Denies arthralgias Integumentary Denies abscess or rash Neurologic Neurologic: Denies headache(s) or weakness Psychiatric Psychiatric: Denies anxiety, depression, suicidal ideation or suicidal thoughts Endocrine Endocrinology: Denies polydipsia, polyphagia or polyuria Allergic/Immunologic Allergic/Immunologic ED: Denies mouth swelling, tongue swelling or urticaria EXAM Physical Exam Const Vital Signs: 09/08/24 10:07 09/08/24 12:07 Temperature 97.6 F L Temperature Source Temporal Pulse Rate 93 89 Respiratory Rate 16 19 H Blood Pressure 128/67 H Blood Pressure Mean 87 Pulse Ox 100 96 Oxygen Delivery Method Room Air Room Air Positive well nourished and well developed General Appearance ED: well developed HEENT Reports normocephalic, head/scalp atraumatic and moist mucous membranes Eyes PERRL and EOMs intact bilaterally Neck no lymphadenopathy, supple and no JVD Resp normal respiratory effort and clear to auscultation bilaterally Cardio regular rate, regular rhythm and no murmurs GI normal to inspection, nondistended, normoactive bowel sounds and non-tender Palpation: soft Back/Spine no CVA tenderness and normal ROM Extremity normal to inspection General Extremety ED: Negative for edema General Extremity: Negative for edema Neuro oriented x3 and CN's II-XII intact bilaterally Sensorium / Orientation: alert Motor Exam: strength 5/5 throughout Psych mental status grossly normal Mood & Affect: Negative for depressed or tearful Skin no rashes or lesions noted and no wounds MDM MDM MDM Narrative Medical decision making narrative: Differential diagnosis includes but not limited to gastroenteritis dehydration electrolyte abnormalities acute kidney injury colitis Patient's white count 5.8 hemoglobin 14.7 platelet count of 255. BMP shows a potassium of 3.0 anion gap of 13 CO2 23 BUN 11 creatinine 0.64. Normal LFTs and lipase. EKG was obtained because of the hypokalemia shows a normal sinus rhythm with a ventricular rate of 61 bpm. Patient received IV fluids and Zofran and then later potassium chloride. The patient can be discharged home. Place potassium as an outpatient provide antiemetics. Would encourage continued oral hydration. The abdomen continues to be nonsurgical. This most likely viral gastroenteritis History & Record Review Discussion w/independent historian: Patient Lab Data Attestation: I reviewed the patient's lab results. Labs: Laboratory Results - last 24 hr 09/08/24 10:40 WBC 5.8 RBC 5.28 Hgb 14.7 Hct 42.1 MCV 79.7 L MCH 27.8 MCHC 34.9 RDW Std Deviation 36.1 RDW Coeff of Nakia 12.5 Plt Count 255 MPV 9.8 Immature Gran % (Auto) 0.300 Neut % (Auto) 55.0 Lymph % (Auto) 27.3 [place] % (Auto) 12.6 H Eos % (Auto) 4.1 Baso % (Auto) 0.7 Absolute Neuts (auto) 3.2 Absolute Lymphs (auto) 1.58 Nucleated RBC % 0 Sodium 139 Potassium 3.0 L Chloride 102 Carbon Dioxide 23.0 Anion Gap 13 BUN 11 Creatinine 0.64 L Estim Creat Clear Calc 122.58 Est GFR (MDRD) Non-Af 109 BUN/Creatinine Ratio 17.8 Glucose 99 Calcium 8.9 Total Bilirubin 0.54 Direct Bilirubin 0.23 AST 24 ALT 24 Alkaline Phosphatase 68 Total Protein 7.0 Albumin 4.2 Globulin 2.9 Lipase 38 Discharge Plan Triage Chief Complaint: Nausea/Vomiting/Diarrhea ED Provider: Raheel Carey Dx/Rx/DC Orders Clinical Impression: Gastroenteritis, Acute hypokalemia Instructions: ED Gastroenteritis, Viral (Adult) Prescriptions: New ondansetron 4 mg tablet,disintegrating 4 mg PO Q6H PRN PRN (Reason: Nausea) Qty: 15 0RF potassium chloride 20 mEq tablet extended release 40 meq PO DAILY Qty: 6 0RF No Action citalopram [Celexa] 10 mg tablet 20 mg PO DAILY rosuvastatin [Crestor] 20 mg tablet 20 mg PO QDAY CombiPatch 0.05-0.25 mg/24 hr patch semiweekly 1 patch transdermal 2XW Qty: 24 3RF Rx Instructions: apply 1 patch every 3 days alternating with 1 patch every 4 days multivitamin Tablet 1 tab PO QDAY propranolol 120 MG capsule,extended release 24 hr 120 mg PO DAILY Zyrtec 10 mg Capsule 10 mg PO DAILY Probiotic with Prebiotic 1 billion-250 cell-mg capsule 1 cap PO DAILY Mounjaro 5 mg/0.5 mL pen injector 5 mg SUBCUT TH pantoprazole 40 mg tablet,delayed release (DR/EC) 40 mg PO QAM Qty: 90 3RF Primary Care Provider: Radha Blackman Referrals: Radha Blackman DO [Primary Care Provider] - As Needed Print Language: Honduran Disposition Disposition: Home, Self Care Discharge Date/Time: 09/08/24 13:34
[2024-09-08] MEDS: 0.9% Normal Saline (1000mL) 1,000 ML 1000 ML IV (11:29)
[2024-09-08] MEDS: Ondansetron 4 MG/2 ML Vial IV (11:30)
[2024-09-08 11:36] LABS: Absolute Lymphocyte Count 1.58 X10^3/uL (0.83-4.51); Absolute Neutrophil Count 3.2 X10^3/uL (2.0-7.7); Basophil# 0.04 X10^3/uL; Basophil% 0.7 % (0-1); Eosinophil# 0.24 X10^3/uL; Eosinophils% 4.1 % (0-5); Hematocrit 42.1 % (37-47); Hemoglobin 14.7 g/dL (12.0-15.0); Lymphocyte # 1.58 X10^3/ul (0.83-4.51); Lymphocyte % 27.3 % (19-41); Mean Corp Hgb Conc 34.9 g/dL (32-36); Mean Corpuscular Hgb 27.8 pg (27.0-32.0); Mean Corpuscular Volume 79.7 fL (81-99); Mean Platelet Vol. 9.8 fl (6.2-12.0); Monocyte# 0.73 X10^3/uL; Monocyte% 12.6 % (0-10); NRBC Flagged by Analyzer 0 % (0-5); Neutrophil # 3.18 X10^3/uL (2.7-7.7); Platelet Count 255 K/mm3 (150-450); RBC Distribution Width CV 12.5 % (11.6-14.6); RBC Distribution Width SD 36.1 fl (35.1-43.9); Red Blood Count 5.28 M/mm3 (4.2-5.4); White Blood Count 5.8 K/mm3 (4.4-11.0)
[2024-09-08 12:07] VITALS: PULSE 89; RESP 19; O2SAT 96
[2024-09-08 12:16] LABS: Lipase 38 U/L (13-75)
[2024-09-08 12:34] LABS: Alanine Aminotransfer ALT/SGPT 24 U/L (<=34); Albumin, Serum 4.2 g/dL (3.5-5.0); Alkaline Phosphatase 68 U/L (35-104); Anion Gap 13 (5-15); BUN 11 mg/dL (4-19); BUN/Creat Ratio 17.8 RATIO (10-20); Bilirubin, Direct 0.23 mg/dL (0.00-0.30); Calcium,Total 8.9 mg/dL (7.6-11.0); Chloride 102 mmol/L (98-108); Creatinine, Serum 0.64 mg/dL (0.70-1.20); EST Glomerular Filtration Rate 109 (>60); Estimated Creatinine Clearance 122.58 ml/min (50-250); Globulin 2.9 g/dL (2.2-4.2); Glucose 99 mg/dL (70-99); Sodium Level 139 mmol/L (133-145); Total Bilirubin 0.54 mg/dL (0.00-1.30)
--- NOTE | 2024-09-08 12:44 | EKG12_ITS ---
Test Reason : GENERAL Blood Pressure : */* mmHG Vent. Rate : 61 BPM Atrial Rate : 61 BPM P-R Int : 180 ms QRS Dur : 104 ms QT Int : 436 ms P-R-T Axes : 54 56 45 degrees QTcB Int : 438 ms Normal sinus rhythm Normal ECG Confirmed by Rayray Ro ([id number]), food editor JIA CEDILLO ([id number]) on 09/10/2024 6:51:34 AM Referred By: Confirmed By: Rayray Ro
[2024-09-08 12:47] LABS: AST(SGOT) 24 U/L (<=31)
[2024-09-08] MEDS: Potassium Chloride Oral Tablet 20 MEQ 40 MEQ PO (12:48)
== END 2024-09-08 13:34 | disposition home or self-care (01) ==
PROVIDERS: Emergency Provider Emergency Medicine; PCP Internal Medicine; Visit Provider Emergency Medicine
DX: K52.9 Noninfective gastroenteritis and colitis, unspecified (principal); E11.9 Type 2 diabetes mellitus without complications; E87.6 Hypokalemia; I10 Essential (primary) hypertension; Z87.891 Personal history of nicotine dependence; Z86.16 Personal history of COVID-19
CPT/HCPCS: 80048; 80076; 83690; 85025; 93005; 96361; 96374; 96376; 99283; A4216; J2405

== ENCOUNTER → 2024-09-22 | Outpatient (CLI) | payer OTHER, SELFPAY ==
[2024-09-22 13:05] LABS: Absolute Lymphocyte Count 1.74 X10^3/uL (0.83-4.51); Basophil# 0.05 X10^3/uL; Basophil% 0.8 % (0-1); Eosinophils% 3.1 % (0-5); Hematocrit 39.4 % (37-47); Hemoglobin 13.6 g/dL (12.0-15.0); Lymphocyte # 1.74 X10^3/ul (0.83-4.51); Mean Corp Hgb Conc 34.5 g/dL (32-36); Mean Corpuscular Hgb 28.9 pg (27.0-32.0); Mean Corpuscular Volume 83.7 fL (81-99); Mean Platelet Vol. 9.7 fl (6.2-12.0); Monocyte# 0.43 X10^3/uL; Monocyte% 6.7 % (0-10); NRBC Flagged by Analyzer 0 % (0-5); Neutrophil % 62.1 % (47-70); Platelet Count 286 K/mm3 (150-450); RBC Distribution Width CV 12.9 % (11.6-14.6); RBC Distribution Width SD 39.1 fl (35.1-43.9); Red Blood Count 4.71 M/mm3 (4.2-5.4); White Blood Count 6.4 K/mm3 (4.4-11.0)
[2024-09-22 13:31] LABS: Microalbumin,Random Urine < 12.0 mg/L (NO RANGE EST.)
[2024-09-22 13:35] LABS: Hemoglobin A1c 5.9 % (<=5.6)
[2024-09-22 13:52] LABS: ALB/GLOB Ratio 1.6 RATIO (0.9-2.4); AST(SGOT) 25 U/L (<=31); Alanine Aminotransfer ALT/SGPT 35 U/L (<=34); Albumin, Serum 4.1 g/dL (3.5-5.0); Alkaline Phosphatase 66 U/L (35-104); Anion Gap 9 (5-15); BUN 11 mg/dL (4-19); BUN/Creat Ratio 16.8 RATIO (10-20); Carbon Dioxide 24.4 mmol/L (21.0-32.0); Chloride 106 mmol/L (98-108); Cholesterol 167 mg/dL (<=200); Creatinine, Serum 0.65 mg/dL (0.70-1.20); EST Glomerular Filtration Rate 108 (>60); Globulin 2.5 g/dL (2.2-4.2); Glucose 107 mg/dL (70-99); High Density Lipoprotein 50 mg/dL; Low Density Lipoprotein Calc. 102 mg/dL; Potassium 4.4 mmol/L (3.3-5.1); Protein, Total 6.6 g/dL (5.9-8.4); Sodium Level 139 mmol/L (133-145); Total Bilirubin 0.62 mg/dL (0.00-1.30); Triglycerides 77 mg/dL; Very Low Density Lipoprotein 15 mg/dL (5-40); Vitamin B12 426 pg/mL (180-914); Vitamin D,25 Hydroxy 25.4 ng/mL (30-100); cholesterol:hdl ratio screen 3.37
== END | disposition home or self-care (01) ==
LOC: VSLAB 09:27
PROVIDERS: PCP Family Medicine; Visit Provider Family Medicine
DX: I10 Essential (primary) hypertension (principal); K21.9 Gastro-esophageal reflux disease without esophagitis; E78.2 Mixed hyperlipidemia; R73.01 Impaired fasting glucose
CPT/HCPCS: 36415; 80053; 80061; 82043; 82306; 82607; 83036; 84443; 85025

== ENCOUNTER 2025-02-23 15:00 | Outpatient (RCR) | payer OTHER, SELFPAY ==
--- NOTE | 2025-01-28 08:24 | HP.OTEVAL_ITS ---
Patient's Visit Information Visit Information Visit Information: RUPERTO LOBATO is a 49 year old F, referred to Occupational Therapy by Dr. Lars Virgen MD, with a diagnosis of Madelung's Deformity. Date of Evaluation: 01/27/25 Occupational Therapist: Sherin Vargas, OTR/Lázaro, CHT Subjective Subjective: This 49 year old female was seen for OT eval with dx of Madelung's deformity. pt sates she has had pain for a 6-8 months now with daily tasks. pt states Dr. Virgen did give her anti-inflammatory that did help decrease the pain that was radiating down her forearm. pt states she could typically get in her brace and this would help decrease her pain- however pain continued and limited her with work and daily tasks. pt stats she would like to know what more she can do to decrease pain to return to her PLOF. 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 Pain right wrist: Current Pain Intensity: 2 Pain Intensity Range: 5 and 6 ROM Forearm: right sup 40* left 55* Wrist: right 65/40 left 60/45 ROM Comments: left RD 15* left UD right RD 10* with discomfort UD 35* Strength Marketing Information Manager: right 60# left 60# Lateral Pinch: right 10# left 10# Tripod Pinch: right 6# with pain left 10# Sensation Sensation Comments: denies Goals Goal:: pt will report no pain greater than 1/10 with use of right UE with daily and work tasks by d.c Goal:: Pt will demo understanding of joint protection and ergonomics when performing BADLs and IADLs by d/c Pt will demo understanding of adaptive Equipment use to decrease stress on joints to allow pt to perform BADSL and IADLS at SOHAM level. Goal:: Pt will demo understanding of work/lifting and carry ergonomics to decrease stress on tendons to increase pts independent with ADLs, IADLS and work tasks by d/c. Goal:: Pt will demo understanding of using supportive bracing 80% of workday/ADLS to decrease stress on tendon origin to allow healing and decrease pain by end of 2nd session. Rehabilitation General Assessment: pt has has increasing pain with daily tasks that stops her from completing an activity. Pt demo need for skilled OT services 1-2x week for 4 weeks to decrease pts pain, strengthen and return pt to her PLOF. Today therapist ed. pt on isometric RD and wrist ex. and as well as problem solving work ergo. Pt demo understanding and agree to POC. Rehabilitation Potential: Good Anticipated Interventions Anticipated Interventions: A/AAROM/PROM, Strengthening, Modalities, Orthoses, Joint Protection/Energy Conservation, Ergonomic Education, Education re assistive Equipment and Education re Diagnosis Visit Plan Frequency: 1-2x /Week Duration: 4 Weeks TEXT: Thank you for the opportunity to evaluate your patient. For Medicare and Medicare HMO plans, please review the plan of care and approve it. It will need to be FAXED BACK to us at [phone] for Medicare purposes. Please let me know if there are questions or concerns regarding this plan of care. Physician Signature: Date:
--- NOTE | 2025-02-23 15:32 | HP.OTDCSUM ---
Discharge Summary D/C Summary: It has been my pleasure to treat RUPERTO LOBATO under orders from Dr. Lars Virgen MD, for the diagnosis of Madelung's Deformity for a total of 7 visit(s). Please see the following information for a summary of their discharge status. Overall Improvement % Improvement: 10 Goals Patient Goals: Decrease Pain, Use Hand/Wrist/Arm Normally Again and Resume Former Household Responsibilities (Cooking,Cleaning,Yard, etc.) Goal:: pt will report no pain greater than 1/10 with use of right UE with daily and work tasks by d.c NOT met Goal:: Pt will demo understanding of joint protection and ergonomics when performing BADLs and IADLs by d/c goal met Pt will demo understanding of adaptive Equipment use to decrease stress on joints to allow pt to perform BADSL and IADLS at SOHAM level. goal met Goal:: Pt will demo understanding of work/lifting and carry ergonomics to decrease stress on tendons to increase pts independent with ADLs, IADLS and work tasks by d/c. goal met Goal:: Pt will demo understanding of using supportive bracing 80% of workday/ADLS to decrease stress on tendon origin to allow healing and decrease pain by end of 2nd session. goal met Plan Plan: 1-2x/week for 4 weeks pt plans to order bullseye brace for R volar ulna/pisiform region D/C Information Discharge Comments: This 49 year old female seen by OT dx of medelung deformity. progress made in POC pt however continues to have pain and is now scheduled for MRI. Pending MRI pt may come back for treatments. d/c sentence: If there are questions or concerns regarding this patient's occupational therapy, please fell free to call me at [phone]. Thank you for the referral of this patient. Sincerely, Renetta Galan
--- NOTE | 2025-02-23 15:41 | HP.OTDCNRP_ITS ---
Patient Information Patient Information: RUEPRTO LOBATO was seen in my office for initial evaluation on 01/27/25. The following Plan of Care was established for this patient: POC Established Initial Frequency: 1-2x /Week Initial Duration: 4 Weeks Plan: 1-2x/week for 4 weeks pt plans to order bullseye brace for R volar ulna/pisiform region Anticipated Interventions Anticipated Interventions: A/AAROM/PROM, Strengthening, Modalities, Orthoses, Joint Protection/Energy Conservation, Ergonomic Education, Education re assistive Equipment and Education re Diagnosis Last Seen Last Seen: This patient was last seen in our office 02/23/25. Pertinent comments regarding their Occupational therapy will appear below: This 49 year old female [facility] OT [facility]. progress made in POC pt however continues to have pain and is now scheduled for MRI. Pending MRI pt may come back for treatments. At this point I will be discontinuing this patient from occupational therapy. I would be happy to see this patient again in the future if found appropriate by the physician. Thank you! Renetta Galan
== END 2025-02-23 19:00 | disposition home or self-care (01) ==
LOC: OT 15:00
PROVIDERS: PCP Family Medicine; Referring Provider Orthopaedic Surgery; Visit Provider Orthopaedic Surgery
DX: M25.531 Pain in right wrist (principal); Q74.0 Other congenital malformations of upper limb(s), including shoulder girdle
CPT/HCPCS: 97035; 97110; 97140; 97166

== ENCOUNTER → 2025-03-09 | Outpatient (CLI) | payer OTHER, SELFPAY ==
--- NOTE | 2025-03-09 15:40 | MRI_ITS ---
PROCEDURE: UPPER EXT JOINT ONLY(ROUTINE) 03/09/2025 REASON FOR EXAM: [facility] INJURY RIGHT INITIAL ENCOUNTER TECHNIQUE: Procedure Code: [id number] Modality: MR Procedure: UPPER EXT JOINT ONLY(ROUTINE) Multiplanar and multisequence images were obtained without IV contrast administration. COMPARISON: none FINDINGS: Focal high signal of the ulnar attachment of the triangular fibrocartilage yet with no fibers interruption. Surrounding edema signal is noted. Muscles and tendons around the wrist joint appear unremarkable. No signs or tear or significant tenosynovitis. Carpal tunnel, Guyon's canal and structures within them are unremarkable. The neurovascular structures are unremarkable. No obvious soft tissue lesion is seen along the course of median nerve. Mild radio-ulnar, radio-carpal, ulno-carpal intercarpal and carpometacarpal joints effusion. Multilocular ganglion cyst seen along the volar aspect of the radio-scaphoid articulation measuring about 10 x 7 mm Subcortical pseudocysts of the carpal bones. No marrow infiltrative lesions. MRI/Upper Ext Joint Only(Routine) IMPRESSION: Injured ulnar attachment of the triangular fibrocartilage. Mild wrist joints effusion. Volar radio-scaphoid multilocular ganglion cyst. [facility]
== END | disposition home or self-care (01) ==
LOC: MRI 11:25
PROVIDERS: PCP Family Medicine; Referring Provider Orthopaedic Surgery Hand Surgery; Visit Provider Orthopaedic Surgery Hand Surgery
DX: S69.81XA Other specified injuries of right wrist, hand and finger(s), initial encounter (principal)
CPT/HCPCS: 73221

== ENCOUNTER → 2025-04-15 | Outpatient (CLI) | payer OTHER, SELFPAY ==
[2025-04-15 13:16] LABS: Ferritin 48 ng/mL (22-378); Vitamin B12 537 pg/mL (180-914); Vitamin D,25 Hydroxy 30.9 ng/mL (30-100)
== END | disposition home or self-care (01) ==
LOC: VSLAB 08:50
PROVIDERS: PCP Family Medicine; Visit Provider Family Medicine
DX: R73.01 Impaired fasting glucose (principal); K21.9 Gastro-esophageal reflux disease without esophagitis; E55.9 Vitamin D deficiency, unspecified
CPT/HCPCS: 36415; 82306; 82607; 82728; 83036

== ENCOUNTER → 2025-06-02 | Outpatient (CLI) | payer OTHER, SELFPAY ==
--- NOTE | 2025-06-02 16:00 | BI_ITS ---
EXAM: SCRN MAMM (CAD)W/АННА BILAT DATE: 06/02/2025 CLINICAL HISTORY: F, Age 49 y/o , SCREEN FOR BREAST CANCER TECHNIQUE: Procedure Code: [id number] Modality: MG Procedure: SCRN MAMM (CAD)W/АННА BILAT COMPARISON: Prior exam(s) dated 05/15/2024 and 05/14/2023. FINDINGS: TISSUE DENSITY: There are scattered areas of fibroglandular density. Bilateral Breast Mammographic Findings: No significant masses, calcifications or other abnormalities are identified. A stable 8 mm, benign-appearing, intramammary lymph node in the superior outer, far posterior aspect of the right breast is noted. BI/SCRN MAMM (CAD)W/АННА BILAT IMPRESSION: Benign screening mammogram. OVERALL FINAL ASSESSMENT BI-RADS 2: BENIGN RECOMMENDATION: Routine annual follow-up in 1 Year Additional Recommendation none A letter with findings and recommendations will be mailed to the patient. Reading Location: [id number]
== END | disposition home or self-care (01) ==
LOC: OPBI 15:55
PROVIDERS: PCP Family Medicine; Referring Provider Nurse Practitioner Women's Health; Visit Provider Nurse Practitioner Women's Health
DX: Z12.31 Encounter for screening mammogram for malignant neoplasm of breast (principal)
CPT/HCPCS: 77063; 77067